=== PATIENT | male | born 1935 | race Caucasian/White ===

== ENCOUNTER 2020-06-12 13:30 | Outpatient (CLI) | payer MEDICARE, BC, SELFPAY ==
--- NOTE | ~2020-06-12 | CT_ITS ---
EXAMINATION: CT chest wo con DATE: 06/12/2020 14:10 INDICATION: Lung nodule TECHNIQUE: Computed tomography (CT) of the chest was performed without intravenous contrast. The dose -length product (DLP) was 219.08 mGy-cm. Automated exposure control and iterative reconstruction tech nique were employed. COMPARISON: None FINDINGS: Small nodules of the right upper lobe measure up to 4 mm on image 45. There is a 4 mm nodul e of the left upper lobe on image 50. There is a 4 mm left lower lobe nodule on image 79. No patholog ically enlarged thoracic lymph nodes are identified. The heart size is normal. Calcified coronary art manolo atherosclerosis is noted. A 1.9 cm area of fluid attenuation in the subcutaneous fat of the upper back likely represents a sebaceous cyst. There is mild thoracic spondylosis. Calcified pulmonary n odules are consistent with old granulomatous disease. There is dependent atelectasis. No focal airspa ce opacities are identified. IMPRESSION: 1. Scattered pulmonary nodules measuring up to 4 mm, likely old granulomatous disease in the absence of known malignancy. If the patient has no risk factors for malignancy, no further follow up is requi red. If there are risk factors for malignancy (i.e., history of smoking, asbestos or radiation expos ure), consider followup CT in 12 months. Reviewed, dictated and finalized at location A. IMPRESSION: 1. Scattered pulmonary nodules measuring up to 4 mm, likely old granulomatous d isease in the absence of known malignancy. If the patient has no risk factors f or malignancy, no further follow up is required. If there are risk factors for malignancy (i.e., history of smoking, asbestos or radiation exposure), conside r followup CT in 12 months.
== END 2020-06-12 13:31 | disposition home or self-care (01) ==
PROVIDERS: PCP Family Medicine; Visit Provider Internal Medicine Critical Care Medicine
DX: R91.8 Other nonspecific abnormal finding of lung field (principal)
CPT/HCPCS: 71250

== ENCOUNTER 2020-07-17 08:26 | Outpatient (CLI) | payer MEDICARE, BC, SELFPAY ==
--- NOTE | 2020-08-04 20:47 | SLEEP_ITS ---
HOME SLEEP TEST DATE OF STUDY: 07/17/2020 ORDERING PHYSICIAN: Yanira Quijano M.D. REASON FOR THE STUDY: MARK. HISTORY: This patient is an 84-year-old man, 5 feet 8 inches tall, weighing 176 pounds with a body mass index of 26.7. He has a prior history of obstructive sleep apnea syndrome, was never on CPAP, he does gasp at night periodically. His sleep-related complaints include waking at least 3 times at night to use the bathroom, breathing through his mouth at night and a snorting noise when he wakes up throughout the night. This happens if he is lying supine. He rarely has trouble sleeping with a cold, rarely gasps for breath at night. He frequently has breathing problems at night witnessed by others. He occasionally sweats excessively at night. He never notices his heart pounding or beating irregularly at night. He rarely falls asleep during the day. He never falls asleep involuntarily or while driving. He does not have loss of muscle tone with strong emotion or daytime difficulties due to excessive sleepiness. He does not feel paralyzed on waking or falling asleep and does not have vivid dreamlike scenes upon awakening or falling asleep. He is never afraid to go to sleep and denies nightmares. He rarely remembers his dreams, occasionally has racing thoughts. He rarely feels sad or depressed. He occasionally feels anxiety. He never has muscular tension. He rarely notices parts of his body jerking. He does not kick at night, does not have crawly achy feelings in his legs at night, does not have leg pain at night and does not have morning jaw pain. Bedtime is 10:30 p.m. and falling asleep may take anywhere from 30 minutes up to 2 hours. He typically awakens 3 times at night to go to the bathroom. He wakes in the morning at 6:30 a.m. He estimates 6-7 hours of sleep at night. He does have daytime sleepiness on occasion and occasionally has memory or concentration problems. MEDICAL COMORBIDITIES: 1. Hypertension. 2. Impaired fasting glucose. 3. Multiple pulmonary nodules. 4. Prostate cancer. 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 MEDICATIONS: 1. Lisinopril 5 mg daily. 2. Silodosin 4 mg daily. HABITS: Previously smoked tobacco, none currently. He has 7 alcoholic beverages a week. Does not use recreational substances. He does not indicate if he drinks caffeine or not. DESCRIPTION OF THE STUDY: On the [place] Sleepiness Scale, his score is 5. This was conducted as an unattended type 3 portable home sleep test using 4-channel monitoring with respiratory effort channel, snoring channel, oxygen saturation channel, and heart rate channel. This study was scored using [facility] guidelines. The apnea-hypopnea index is 4. Respiratory disturbance index is 6.4, which is elevated. Oxygen desaturation index is 3. He had 6 apneas. Of the 6 apneas, 4 apneas or 67% were obstructive, 2 apneas or 33% were central, he had 18 hypopneas and 95 snoring events. He desaturated 25 times, but did not desaturate below 88%. Lowest saturation was 89%. Mean saturation was 96%. Pulse ranged from 50-100. IMPRESSION: This home sleep test does not show evidence of significant sleep-disordered breathing. He had mild increase in his respiratory disturbance index at 6.4, but this does not qualify for diagnosis of obstructive sleep apnea syndrome. He likely has upper airway resistance syndrome, but this is not a criteria to initiate CPAP therapy. We would recommend evaluation for nasal and upper airway anatomy and other symptoms such as rhinitis that could be treated medically to improve and reduce airway resistance at night. The patient can consider sleeping on his side and possibly elevating the head of the bed. He desaturates to 89%, which is very minimal
--- NOTE | 2020-08-30 12:59 | PM.EVENT ---
Event Note Event Note Event Note: Addendum to Vini Aguirre's Home Sleep Test 07/17/2020. The evaluation time was 6 hours 22 minutes. This was not included on the final report.
== END 2020-07-17 08:27 | disposition home or self-care (01) ==
LOC: ANHCSM 08:27
PROVIDERS: PCP Family Medicine; Visit Provider Internal Medicine Critical Care Medicine
DX: G47.33 Obstructive sleep apnea (adult) (pediatric) (principal)
CPT/HCPCS: 95806

== ENCOUNTER → 2021-03-22 12:57 | Outpatient (CLI) | payer MEDICARE, BC, SELFPAY ==
--- NOTE | ~2021-03-22 | CT_ITS ---
EXAMINATION: CT brain wo con DATE: 03/22/2021 13:10 INDICATION: Syncope. Collapse. TECHNIQUE: Computed tomography (CT) of the head was performed without intravenous contrast. The dose- length product was 599.57 mGy-cm. The mA was adjusted according to patient size. Iterative reconstruc tion technique was employed. COMPARISON: CT dated 07/30/2018 FINDINGS: Mild atrophy. There are scattered mild periventricular and subcortical white matter changes , most likely related to small vessel ischemic disease (microangiopathy). No ventriculomegaly or midl ine shift. Basilar cisterns are patent. Paranasal sinuses and mastoids are pneumatized. No depressed skull fractures. Midline sagittal images are unremarkable. IMPRESSION: 1. No acute intracranial abnormality. 2: Chronic age-related findings. Reviewed, dictated and finalized at location A.
== END ==
PROVIDERS: PCP Family Medicine; Visit Provider Physician Assistant
DX: R55 Syncope and collapse (principal)
CPT/HCPCS: 70450

== ENCOUNTER 2023-09-13 14:11 | Emergency (ER) | payer MEDICARE, BC, SELFPAY ==
--- NOTE | ~2023-09-13 | CT_ITS ---
EXAMINATION: CT brain wo con DATE: 09/13/2023 14:36 INDICATION: fall . TECHNIQUE: Computed tomography (CT) of the head was performed without intravenous contrast. The mA wa s adjusted according to patient size. Iterative reconstruction technique was employed. The dose-lengt h product was 681.00 mGy-cm. COMPARISON: 03/22/2020. FINDINGS: No acute intracranial hemorrhage or extra-axial fluid collection. No hydrocephalus, mass, or herniation. No acute ischemic infarct. Unremarkable dural venous sinus attenuation. No acute osseous abnormality. The aerated spaces are clear. Moderate atrophy and chronic white matter change. Atherosclerotic intracranial calcification. Bilater al lens replacements. IMPRESSION: No acute intracranial process. Reviewed, dictated and finalized at location K. 6 DEALER
--- NOTE | ~2023-09-13 | CT_ITS ---
EXAMINATION: CT facial & cervical spine wo DATE: 09/13/2023 14:36 INDICATION: fall TECHNIQUE: Computed tomography (CT) of the maxillofacial region and cervical spine was performed with out intravenous contrast. Automated exposure control and iterative reconstruction technique were empl oyed. The dose-length product was 448.37 mGy-cm. COMPARISON: CT C-spine 10/06/2007 FINDINGS: CERVICAL: Vertebral Body Alignment: Intact. Reversed lordosis centered at C5. Craniocervical and atlantoaxial alignment: Moderate degenerative change. Alignment intact. Osseous structures/fracture: No evidence of a lytic or blastic process in the visualized spine. No e vidence of acute fracture. Cervical soft tissues: The paraspinal soft tissues planes are maintained. Degenerative changes: Degenerative changes, without severe neural foraminal or central canal narrowin g . FACE: Soft Tissues: Soft tissue swelling over the forehead and nose. Facial bones: Mildly comminuted, mildly depressed nasal bone fractures. No lytic or blastic process. Eyes: The globes are intact. The soft tissue planes of the orbits are maintained. Paranasal Sinuses: The visualized aerated spaces are clear. Foreign Bodies: No radiopaque foreign bodies. Other Findings: None. IMPRESSION: No acute fracture or traumatic malalignment in the cervical spine. Mildly comminuted and mildly depre ssed nasal bone fractures. Reviewed, dictated and finalized at location K. PER IMPRESSION: No acute fracture or traumatic malalignment in the cervical spine. Mildly commi nuted and mildly depressed nasal bone fractures.
[2023-09-13 14:12] VITALS: BP 143/85; PULSE 75; RESP 16; TEMP 36.8; O2SAT 100
--- NOTE | 2023-09-13 14:31 | ED.FALL ---
HPI - Fall General Chief Complaint: Fall Stated Complaint: Fall, Lacerations of Face Time Seen by Provider: 09/13/23 14:29 Source: patient and family History of Present Illness HPI Narrative: patient was chasing leave bag on the concrete floor, tripped and landed face 1st, the loss of consciousness complaining of nasal bone and the front teeth pain. Patient does not remember the last time he had a tetanus shot, is not on anti-platelet or anticoagulant medication. Related Data Allergies Allergy/AdvReac Type Severity Reaction Status Date / Time No Known Allergies Allergy Verified 09/13/23 14:16 [facility] Past Medical History Medical History HTN (hypertension), benign IFG (impaired fasting glucose) Multiple pulmonary nodules determined by computed tomography of lung Prostate cancer Surgical History Surgical History Status post left inguinal hernia repair Status post tonsillectomy Family History Family History Father Pancreatic cancer Father Family history of pancreatic cancer Social History Social History Social History: Smoking packs per day: 1 Smoking cigarettes per day: 20.0 Years smoked: 2 Smoking pack-years: 2.00 Smoking status: Former smoker Second hand tobacco smoke exposure: No Alcohol intake: current Drinks per week: 7 Substance use: never Substance use type: does not use Living arrangements: with family Occupation/Education: retired Gender identity (if verbalized by the patient): Male Sexual Orientation (if Verbalized by the Patient): Straight or Heterosexual Exam Narrative: General appearance: Well-developed, well-nourished , anxious Skin: Normal color, 2 cm vertical laceration mid upper lip Head: Normocephalic, nontraumatic Eyes: Clear conjunctiva ENT: Oropharynx normal, ears normal, nose normal, upper front incisor pushed slightly backward , does not move Neck: Supple, nontender Chest and respiratory: Airway patent, no respiratory distress, no accessory muscle use Heart: Regular rate/rhythm Abdomen: Soft, nontender, no organomegaly, quiet bowel sounds Vascular: Normal peripheral pulses, normal capillary refill. Musculoskeletal: Normal range of motion, nontender back Neurologic: Alert and oriented ?3, POULTRY CULLER is normal as tested, no gross motor deficit Course Vital Signs Vital signs: Vital Signs Temperature 36.8 C 09/13/23 14:12 Pulse Rate 75 09/13/23 14:12 Respiratory Rate 16 09/13/23 14:12 Blood Pressure 143/85 H 09/13/23 14:12 Pulse Oximetry 100 09/13/23 14:12 Temperature 36.8 C 09/13/23 14:12 Pulse Rate 78 09/13/23 17:29 Respiratory Rate 16 09/13/23 17:29 Blood Pressure 142/86 H 09/13/23 17:29 Pulse Oximetry 98 09/13/23 17:29 Procedures Laceration Laceration 1: Date: 09/13/23 Time: 17:48 Site: lip Size (cm): 2 Description: linear, clean and involves tiny border Depth: simple, single layer Local Anesthetic: lidocaine 1% and with epi Amount of anesthesia used (mL): 3 Pre-repair: wound explored ====== Skin Level ====== Skin layer closed with: other (ethiolon) Size (cm): 6-0 Number of sutures: 5 Technique: simple, interrupted ====== Subcutaneous Layer ====== ====== Muscle Layer ====== ====== Tendon Layer ====== MDM - Fall MDM Narrative Medical decision making narrative: chino
[2023-09-13] MEDS: TETANUS,DIPHTHERIA,AC PERTUSSIS ADULT (0.5 ML) BOOSTRIX IM (15:34)
[2023-09-13] MEDS: CEPHALEXIN 500 MG CAPSULE PO (17:28)
[2023-09-13 17:29] VITALS: BP 142/86; PULSE 78; RESP 16; O2SAT 98
== END 2023-09-13 17:30 | disposition home or self-care (01) ==
PROVIDERS: Emergency Provider Emergency Medicine; PCP Family Medicine
DX: S01.511A Laceration without foreign body of lip, initial encounter (principal); S02.2XXA Fracture of nasal bones, initial encounter for closed fracture; S03.2XXA Dislocation of tooth, initial encounter; Z23 Encounter for immunization; I10 Essential (primary) hypertension; Z85.46 Personal history of malignant neoplasm of prostate; Z87.891 Personal history of nicotine dependence; W01.0XXA Fall on same level from slipping, tripping and stumbling without subsequent striking against object, initial encounter
CPT/HCPCS: 12011; 70450; 70486; 72125; 90471; 90715; 99284; A9270

== ENCOUNTER 2023-09-21 20:29 | Inpatient (IN) | payer MEDICARE, BC, SELFPAY ==
--- NOTE | ~2023-09-21 | MR_ITS ---
MRI of the brain Clinical History: Dysarthria, unsteadiness Technique: Axial and sagittal T1-weighted images were acquired. These were followed by axial T2-weigh kayla, diffusion weighted, gradient, and FLAIR images. Following intravenous administration of 16 cc Mu ltiHance gadolinium, T1-weighted fat-sat imaging was performed in the axial and coronal planes. Findings: Questionable acute to subacute punctate acute infarct in the left trish. There is moderate t o advanced chronic microvascular ischemic change in the white matter and trish otherwise. No intracran ial hemorrhage evident. Ventricles and subarachnoid spaces are dilated. Orbits are unremarkable. Paranasal sinuses and mastoi d air cells are clear. Major intracranial flow voids appear intact. Sagittal midline structures are intact. No abnormal postcontrast enhancement identified. IMPRESSION: Questionable punctate acute infarct in the left trish. Moderate to advanced chronic microvascular ischemic change, and moderate generalized atrophy. Reviewed, dictated and finalized at [facility]. RDS ANALYST IMPRESSION: Questionable punctate acute infarct in the left trish. Moderate to advanced chronic microvascular ischemic change, and moderate genera lized atrophy.
--- NOTE | ~2023-09-21 | CT_ITS ---
EXAMINATION: CT brain wo con DATE: 09/21/2023 21:10 INDICATION: syncope . TECHNIQUE: Computed tomography (CT) of the head was performed without intravenous contrast. The mA wa s adjusted according to patient size. Iterative reconstruction technique was employed. The dose-lengt h product was 681.00 mGy-cm. COMPARISON: 09/13/2023. FINDINGS: No acute intracranial hemorrhage or extra-axial fluid collection. No hydrocephalus, mass, or herniation. No acute ischemic infarct. Unremarkable dural venous sinus attenuation. No acute osseous abnormality. Mild ethmoid mucosal thickening, the remaining aerated spaces are clear. Moderate atrophy and chronic white matter change. Atherosclerotic intracranial calcification. Bilater al lens replacements. IMPRESSION: No acute intracranial process. Reviewed, dictated and finalized at location K. C INSTRUCTOR
--- NOTE | ~2023-09-21 | XR_ITS ---
EXAMINATION: XR chest 1V portable Exam Date/Time: 09/21/2023 22:04 CLOUD SYSTEMS ARCHITECT HISTORY: SYNCOPE, WEAKNESS Comparison: 04/03/2011; CT face C-spine 09/13/2023; CT chest 06/12/2020. RESULT: Lines, tubes, and devices: None. Lungs and pleura: Streaky bibasilar scar/atelectasis, otherwise clear. Cardiomediastinal silhouette: Stable. Other: No acute osseous or upper abdominal finding. IMPRESSION: No acute cardiopulmonary process. Reviewed, dictated and finalized at location K. D SYSTEMS ARCHITECT
--- NOTE | ~2023-09-21 | US_ITS ---
EXAMINATION: US carotid duplex BI DATE: 09/24/2023 13:08 INDICATION: Stroke. Dysarthria. TECHNIQUE: Grayscale, color Doppler, and pulsed Doppler images of the cervical carotid arteries were obtained. The degree of vessel stenosis is placed in one of the following categories: normal, <50%, 5 0-69%, >=70% but less than near-occlusion, near-occlusion, or total occlusion. Note that percent sten osis relative to normal distal artery lumen diameter is indirectly measured from velocity measurement s as described by Marin, et al. Radiology 2003; [id number]. COMPARISON: None. FINDINGS: RIGHT: The right common carotid artery (CCA) peak systolic velocity (PSV) is 105 cm/s. The right internal ca rotid artery (ICA) PSV is 60 cm/s. The right ICA end-diastolic velocity (EDV) is 13 cm/s. The right I CA/CCA PSV ratio is 0.6. Grayscale and color Doppler images yield an estimate of <50% diameter reduct ion from plaque in the ICA. There is antegrade flow in the right vertebral artery. LEFT: The left CCA PSV is 134 cm/s. The left ICA PSV is 52 cm/s. The left ICA EDV is 11 cm/s. The left ICA/ CCA PSV ratio is 0.4. Grayscale and color Doppler images yield an estimate of <50% diameter reduction from plaque in the ICA. There is antegrade flow in the left vertebral artery. IMPRESSION: 1. <50% stenosis in the right internal carotid artery. 2. <50% stenosis in the left internal carotid artery. Reviewed, dictated and finalized at location A. AL SERVICE DIRECTOR
[2023-09-21 20:26] VITALS: BP 124/75; PULSE 67; RESP 16; TEMP 36.5; O2SAT 100
--- NOTE | 2023-09-21 20:32 | ECG_ITS ---
Measurements Intervals [place] Rate: 74 P: 56 AL: 245 QRS: 29 QRSD: 88 T: 52 QT: 399 QTc: 443 Interpretive Statements SINUS RHYTHM WITH FIRST DEGREE AV BLOCK NONSPECIFIC T-WAVE ABNORMALITY- ANT/INF LEADS BASELINE ARTIFACT- I, II, III, AVR, AVL, AVF, V1-V3 BORDERLINE ECG NO PREVIOUS ECG AVAILABLE FOR COMPARISON Electronically Signed On 09-22-2023 8:08:49 CARE ASSOCIATE by Omid Wick D.O.
[2023-09-21 20:53] LABS: Basophils Percent Auto 0.3 % (0.2-1.2); Eosinophils Percent Auto 0.3 % (0-4.4); Hematocrit 42.5 % (42.0-52.0); Hemoglobin 13.9 g/dL (14.0-18.0); Immature Granulocyte Absolute 0.03 K/mm3 (0.00-0.031); Immature Granulocyte Percent A 0.4 % (0-0.5); Lymphocytes Absolute Auto 1.03 K/mm3 (0.9-3.2); Lymphocytes Percent Auto 13.2 % (18.3-44.2); Mean Corpuscular HGB Conc 32.7 g/dl (32-36); Mean Corpuscular Volume 103.9 fl (80-100); Mean Platelet Volume 9.1 fl (7.4-10.4); Monocytes Absolute Auto 1.1 K/mm3 (0.1-0.6); Monocytes Percent Auto 13.8 % (2.6-8.5); Neutrophils Absolute Auto 5.6 K/mm3 (1.3-6.7); Platelet Count Result 201 k/mm3 (150-375); Red Blood Count 4.09 M/mm3 (4.6-6.20); Red Cell Distribution Width 13.3 % (11.5-14.5); White Blood Count 7.8 K/mm3 (4.5-10.0)
--- NOTE | 2023-09-21 21:00 | ED.GENADULT ---
HPI - General Adult General Chief complaint: Syncope Stated complaint: syncopal episode Time Seen by Provider: 09/21/23 20:36 History of Present Illness HPI narrative: patient is a 88-year-old gentleman who presents to the emergency department with chief complaint of syncopal episode. Patient reports that approximately 1 week ago he had an episode of syncope of which he fell struck his face and had a nasal bone fracture and a lip laceration. The patient states that since then he has felt weak and has been somewhat shaky the patient states that he was sitting in his chair and became unresponsive in the family noticed that he had snoring respirations EMS was called and reported that his blood pressure was somewhat low at the time the patient had no generalized shaking denies loss of bowel or bladder control and had no signs of seizure. The patient states that he did have 2 episodes of diarrhea today the patient states that he just feels generally weak the patient denies chest pain denies shortness of breath denies abdominal pain Related Data Allergies Allergy/AdvReac Type Severity Reaction Status Date / Time No Known Allergies Allergy Verified 09/13/23 14:16 Review of Systems Review of Systems: A 10 system review of systems was completed on the patient and is negative except for what is stated in the HPI. Nursing and ancillary documentation was reviewed. [facility] Past Medical History Medical History HTN (hypertension), benign IFG (impaired fasting glucose) Multiple pulmonary nodules determined by computed tomography of lung Prostate cancer Surgical History Surgical History Status post left inguinal hernia repair Status post tonsillectomy Family History Family History Father Pancreatic cancer Father Family history of pancreatic cancer Social History Social History Social History: Smoking packs per day: 1 Smoking cigarettes per day: 20.0 Years smoked: 2 Smoking pack-years: 2.00 Smoking status: Former smoker Second hand tobacco smoke exposure: No Alcohol intake: current Drinks per week: 7 Substance use: never Substance use type: does not use Living arrangements: with family Occupation/Education: retired Gender identity (if verbalized by the patient): Male Sexual Orientation (if Verbalized by the Patient): Straight or Heterosexual Exam Narrative: GENERAL: Well-appearing, well-nourished, and in no acute distress. HEAD: Normocephalic, atraumatic. EYES: PERRLA and EOMI. ENT: Nares clear, no rhinorrhea or epistaxis. Mucous membranes moist. NECK: Supple. CHEST: Clear to auscultation. No respiratory distress. HEART: Regular rate and rhythm. No murmur heard. Normal peripheral pulses. ABDOMEN: Soft, nontender, nondistended, normal active bowel sounds. EXTREMITIES: Normal range of motion. No edema. SKIN: Warm, dry, no rash. NEURO: No focal deficits. Alert and oriented x3. PSYCH: Normal mood and affect. Course Vital Signs Vital signs: Vital Signs Temperature 36.5 C 09/21/23 20:26 Pulse Rate 67 09/21/23 20:26 Respiratory Rate 16 09/21/23 20:26 Blood Pressure 124/75 09/21/23 20:26 Pulse Oximetry 100 09/21/23 20:26 Oxygen Delivery Room Air 09/21/23 20:26 Temperature 36.6 C 09/21/23 21:55 Pulse Rate 77 09/21/23 21:55 Respiratory Rate 20 09/21/23 21:55 Blood Pressure 145/80 H 09/21/23 21:55 Pulse Oximetry 99 09/21/23 21:55 Oxygen Delivery Room Air 09/21/23 20:26 Medical Decision Making MDM Narrative Medical decision making narrative: differential diagnosis includes cardiogenic syncope, dehydration, electrolyte abnormality, pneumonia, CVA, laboratory studies were obtai
[2023-09-21] MEDS: SODIUM CHLORIDE 0.9% IV 1,000 ML 999 ML IV CONT (21:53)
[2023-09-21 21:55] VITALS: BP 145/80; PULSE 77; RESP 20; TEMP 36.6; O2SAT 99
[2023-09-21 22:08] LABS: Partial Thromboplastin Time 28.8 SECONDS (22.3-36.8)
[2023-09-21 22:09] LABS: Lactic Acid Reflex 1.3 mmol/L (0.7-2.0)
[2023-09-21 22:17] LABS: Alanine Aminotransferase 18 U/L (6-50); Albumin Level 3.7 g/dL (3.5-5.1); Alkaline Phosphatase 47 U/L (38-126); Anion Gap 12 mmol/L (8-16); Aspartate Amino Transferase 39 U/L (17-59); Bilirubin,Total 0.6 mg/dL (0.2-1.3); Blood Urea Nitrogen 19 mg/dL (9-20); Calcium 8.3 mg/dL (8.4-10.2); Carbon Dioxide 18 mmol/L (22-30); Chloride 102 mmol/L (98-107); Estimated CRCL calculation 49 ml/min; Estimated Glomerular Filt Rate > 60; Glucose 110 mg/dL (65-110); Magnesium 2.1 mg/dL (1.6-2.3); Potassium 4.9 mmol/L (3.4-5.0); Sodium 132 mmol/L (137-145)
[2023-09-21 22:24] LABS: Troponin I < 0.012 ng/mL (0.000-0.034)
[2023-09-21 22:37] LABS: Influenza A QL RT-PCR Negative (Negative); Influenza B QL RT-PCR Negative (Negative); SARS-CoV-2 RNA PCR Negative (Negative)
[2023-09-22] VITALS (11 sets, daily range): BP systolic 106–153; BP diastolic 62–96; PULSE 70–92; RESP 15–20; TEMP 36.5–37.1; O2SAT 96–100; BMI 26.8
[2023-09-22 00:21] LABS: Appearance Urine Clear (Clear); Bacteria Urine None Seen /hpf; Bilirubin Urine Negative (Negative); Blood Urine Negative (Negative); Color Urine Yellow (Yellow); Glucose Urine UA Negative (Negative); Ketones Urine 2+ mg/dL (Negative); Leukocyte Esterase Ur Negative LEU/UL (Negative); Nitrate Urine Negative (Negative); Protein Urine Trace mg/dL (Negative); RBC Urine 0-2 /hpf (0-2); Specific Grav Ur 1.025 (1.001-1.035); Squamous Epithelial Cell Urine None seen /hpf (Few); Urobilinogen Urine 0.2 mg/dL (<2.0); WBC Urine 0-5 /hpf; pH Urine 5.5 (5.0-9.0)
[2023-09-22 00:46] LABS: Add Urine Microscopic? YES
--- NOTE | 2023-09-22 01:30 | ADMGEN ---
This patient, Vini Aguirre, was admitted to Medical Room 344-01. Patient/family oriented to hospital policies and general routines including ID bracelet, bed and alarms, visiting hours, pain management, procedures, bathroom and other care routines, personal items, smoking policy, room service/diet, and visiting hours. Information on how to activate the Rapid Response Team has been discussed. Patient/Family are encouraged to report perceived risks to care and to ask questions if they do not understand what they are told or what they should do.
[2023-09-22] MEDS: SODIUM CHLORIDE 0.9% IV 1,000 ML 125 ML IV CONT ×2 (02:03→10:28)
--- NOTE | 2023-09-22 04:03 | PM.IMHP ---
H&P: HPI History of Present Illness Date/Time: 09/22/23 04:03 Chief Complaint: Weak, diarrhea Narrative: 88-year-old male with past medical history of BPH and hypertension who presented to the ER due to feeling weakness and having diarrhea. Patient reports that problem started 1 week ago when was outside working in the yard. He had been raking leaves about 2 hours and was standing in the driveway. When he went to put the [employer] waste into a bad she passed out. He had no prodromal symptoms and landed on the concrete face 1st. He came into the ER for evaluation and had imaging which demonstrated if nasal fracture. He was discharged home on Keflex for preventative of infection. He reports ever since he had the syncopal event he has been feeling weaker and fatigued. He has also had some decreased appetite. He suspects that he may not have been drinking enough fluid on the day that he was working in the [employer]. He did not receive any IV fluids during his 1st ER visit in did not have labs performed. He reports that about 3 days ago he began having watery brown diarrhea. He was having 2-3 episodes a day until today at which time he had an incontinent bowel movement and he has had 5 her more diarrheal stools. As a result he has not had any desire to eat. He denies any abdominal pain. He denies any nausea headache or vision changes. He denies any dizziness with standing. Orthostatic vital signs obtained after patient arrived to the floor demonstrated approximately 15 be increase in heart rate when going from supine to sitting position. No orthostatic change in blood pressure. Review of Systems Review of Systems: 12 systems were reviewed with pertinent positives and negatives per HPI. Except as documented in the HPI, all other systems were reviewed and are negative. He reports nasal congestion. He has not had any epistaxis since injury. [facility] Past Medical History Medical History HTN (hypertension), benign IFG (impaired fasting glucose) Multiple pulmonary nodules determined by computed tomography of lung Prostate cancer Surgical History Surgical History Status post left inguinal hernia repair Status post tonsillectomy Family History Family History (Updated 09/22/23 @ 04:10 by Kelley Quispe DO) Father Pancreatic cancer Social History Social History (Updated 09/22/23 @ 04:12 by Kelley Quispe DO) Social History: He and his have been since 1960. They live in their own home. 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 He denies any significant tobacco use or drug use. He does not have advanced directives in place. But he does not know if he would want to be resuscitated or be placed on a ventilator. He wants to talk about these options with his family before making a decision. He would want his to be his surrogate decision maker. Smoking packs per day: 1 Smoking cigarettes per day: 20.0 Years smoked: 2 Smoking pack-years: 2.00 Smoking status: Former smoker Second hand tobacco smoke exposure: No Alcohol intake: current Drinks per week: 7 Substance use: never Substance use type: does not use Lack of Transportation: No Lack of Food: Never True Current Housing: I Have Housing Concerned About Future Housing: No Difficulty Paying Gas/Electric Bills: No Difficulty Paying for Meds: No Currently Unemployed: No Education: Bachelor's Degree Difficulty w/ Childcare or Family Care: No Living arrangements: with family Occupation/Education: retired Gender identity (if verbalized by the patient): Male Sexual Orientation (if Verbalized by the Patient): Straight or Heterosexual Spiritual care concerns: No Meds Home Medications and Allergies Home Medications Medication Instructions Recorded Confirmed Type silodosin 4 mg cap
[2023-09-22 06:02] LABS: Mean Corpuscular HGB Conc 32.5 g/dl (32-36); Mean Corpuscular Hemoglobin 34.1 pg (26-34); Mean Platelet Volume 9.1 fl (7.4-10.4); Platelet Count Result 186 k/mm3 (150-375); Red Blood Count 3.81 M/mm3 (4.6-6.20); Red Cell Distribution Width 13.2 % (11.5-14.5); White Blood Count 4.6 K/mm3 (4.5-10.0)
[2023-09-22 06:13] LABS: Anion Gap 7 mmol/L (8-16); Blood Urea Nitrogen 16 mg/dL (9-20); Calcium 7.8 mg/dL (8.4-10.2); Carbon Dioxide 21 mmol/L (22-30); Chloride 106 mmol/L (98-107); Estimated CRCL calculation 55 ml/min; Estimated Glomerular Filt Rate > 60; Glucose 97 mg/dL (65-110); Magnesium 1.9 mg/dL (1.6-2.3); Potassium 4.3 mmol/L (3.4-5.0); Sodium 134 mmol/L (137-145)
[2023-09-22 06:24] LABS: Troponin I < 0.012 ng/mL (0.000-0.034)
[2023-09-22] MEDS: lisinopriL 5 MG TABLET PO (10:27)
[2023-09-22 13:54] LABS: Toxigenic C. Diff NEGATIVE (NEGATIVE)
--- NOTE | 2023-09-22 14:06 | PM.IMPN ---
Progress Note: A&P Assessment and Plan (1) Dehydration: Code(s): E86.0 - Dehydration Status: Acute (2) Diarrhea: Qualifiers: Diarrhea type: presumed infectious Qualified Code(s): R19.7 - Diarrhea, unspecified Code(s): R19.7 - Diarrhea, unspecified Status: Acute (3) Syncope and collapse: Code(s): R55 - Syncope and collapse Status: Acute (4) HTN (hypertension), benign: Code(s): I10 - Essential (primary) hypertension Status: Acute (5) IFG (impaired fasting glucose): Code(s): R73.01 - Impaired fasting glucose Status: Acute (6) Prostate cancer: Code(s): C61 - Malignant neoplasm of prostate Status: Acute (7) Multiple pulmonary nodules determined by computed tomography of lung: Code(s): R91.8 - Other nonspecific abnormal finding of lung field Status: Acute (8) History of sleep apnea: Code(s): Z86.69 - Personal history of other diseases of the nervous system and sense organs Status: Acute Plan 1. Dehydration related to ongoing etoh use, diarrhea, poor PO intake at home urine labs, serum labs show dehydration + orthostatics by HR in the ER. BP orthostatics negative Has received 1.5L IVF so far, will finish the last [address] on d5 1/2 ns at 75 ml/hr Ct oral intake until ready for dc PT/OT and f/u recs 2. 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 Ct to encourage PO intake. Not a candidate for marinol yet 3. EtOh use In a mild withdrawal now based on physical exam signs prn ativan 4. Low electrolytes related to diarrhea CaGluconate being given 5. Nasal fracture From CT face 09/13 FACE: Soft Tissues:? Soft tissue swelling over the forehead and nose. Facial bones:? Mildly comminuted, mildly depressed nasal bone fractures. No lytic or blastic process. Ctm. Pt is showing some mild swelling BL under both eyes in the BL maxillary sinuses 6. BPH silodosin not available tamsulosin/finasteride started 7. Diarrhea c diff neg F/u rotavirus, stool occult blood, giardia, stool wbc/cx 8. Tumor marker screening. Pt has not had PSA for a while. Complaining of urinary retention f/u psa f/u tumor markers which can increase pt's risk of dehydration afp/cea/ca 19-9, ca 125 Time Spent With Patient Time: 45 min Subjective Date/time seen: 09/22/23 14:06 Interval history: reports whole body shaking, difficulty walking, still feeling dehydrated, still diarrhea Reports he drinks only 1 beer a day. says he does not drink much water. Declined echo evaluation of prior syncopal episode. Exam Narrative: Weight 80 kg BMI 26.8 Const: Other: No acute distress, well-developed well-nourished, appears stated age HENMT: Other: Abrasion to the upper lip, swelling to the nasal bridge, no oral pharyngeal erythema, no active bleeding, pupils are equal and reactive, extraocular movements Eyes: Other: Pupils are equal and reactive, extraocular movements intact, mild cataracts noted Neck: Other: Supple, nontender, no JVD Resp: Other: Clear to auscultation bilaterally, no increased work of breathing Cardio: Other: Regular rate, rhythm, 2+ bilateral radial pedal pulses, no murmur GI: Other: Soft, nontender, nondistended, positive bowel sounds Skin: Other: No jaundice, no pallor Neuro: Other: Alert oriented x4, speech is clear, no facial asymmetry, no localizing neurologic deficits noted on limited exam Extrem: Other: No clubbing, cyanosis or edema, 5/5 strength bilateral upper and lower extremities Has BL UE tremor and tongue wag. Also had some gait ataxia while walking with PT/OT. Psych: Other: Appropriate mood and affect, pleasant and cooperative Objective Data Vital Signs Vital Signs: Vital Signs - 24 hr 09/21/23 20:26 09/21/23 21:55 09/22/23
[2023-09-22] MEDS: CALCIUM GLUC 1,000 MG/NS 50 ML 1,000 MG/50 ML BAG 100 MG IVPB (14:20)
[2023-09-22] MEDS: FINASTERIDE 5 MG TABLET PO (14:20)
[2023-09-22] MEDS: TAMSULOSIN HCL 0.4 MG CAPSULE PO (14:20)
[2023-09-22] MEDS: DEXTROSE 5%/0.45% SOD CHL 1,000 ML 75 ML IV CONT (14:21)
[2023-09-22] MEDS: LORazepam INJ (*CRX) 2 MG/ML VIAL 0.5 MG IV PUSH (14:21)
[2023-09-22 22:55] LABS: IFOB Positive Control Positive; Immunochemical Fecal Occult Bl Negative (N)
[2023-09-23] VITALS (7 sets, daily range): BP systolic 116–156; BP diastolic 68–88; PULSE 58–116; RESP 18–20; TEMP 36.1–36.6; O2SAT 97–98
--- NOTE | 2023-09-23 | ECHO_ITS ---
Patient Info Name: Vini Aguirre Age: 88 years : 1935 Gender: Male Ht: 68 in Wt: 176 lbs BSA: 1.97 m2 HR: 76 bpm BP: 135 / 68 mmHg Heart Rhythm: Sinus Rhythm Technical Quality: Fair Exam Date: 09/23/2023 3:24 PM Exam Location: Echo Lab Patient Status: Inpatient Admit Date: 09/23/2023 Staff Ordering Physician: Nikko Luo APRN Motorboat Mechanic: Sobia Patel RDCS Attending Provider: Kelley Quispe DO Referring Physician: Valerio SALDIVAR; Exam Type: CA echo doppler w bubble study Study Info Indications - stroke Complete two-dimensional, color flow and Doppler transthoracic echocardiogram is performed with agitated saline. Contrast/Agitated Saline Contrast/Ag. Saline: Agitated Saline Amount: 20.00 ml Existing IV Access: Yes IV Access Condition: patent with no signs of infiltration Summary 1. Left ventricular chamber dimension is normal. 2. Left ventricular systolic function is normal, estimated at 60-65%. 3. The left ventricular diastolic function is grade II diastolic dysfunction. 4. E/e' 9 is minimally elevated. 5. There is mild aortic valve sclerosis. 6. There is trace aortic valve regurgitation. 7. There is trace mitral valve regurgitation. 8. There is mild tricuspid valve regurgitation. 9. No pulmonary hypertension, estimated pulmonary arterial systolic pressure is 27 mmHg. Left Ventricle E/e' 9 is minimally elevated. Left ventricular chamber dimension is normal. Left ventricular systolic function is normal, estimated at 60-65%. The left ventricular diastolic function is grade II diastolic dysfunction. Right Ventricle Right ventricular systolic function is normal and with normal TAPSE 2.0 cm. Right ventricular chamber dimension is normal. Left Atria Left atrial chamber dimension is normal. Right Atria Right atrial chamber dimension is normal. Atrial Septum Agitated saline injection with and without valsalva maneuver opacified right side cardiac chambers without obvious shunt to left side cardiac chambers. Intact interatrial septum visualized by 2D and agitated saline imaging. Aortic Valve The aortic valve is trileaflet. There is mild aortic valve sclerosis. There is no aortic valve stenosis. There is trace aortic valve regurgitation. Pulmonic Valve There is no pulmonic regurgitation. Mitral Valve There is no mitral valve stenosis. There is trace mitral valve regurgitation. Tricuspid Valve There is mild tricuspid valve regurgitation. No pulmonary hypertension, estimated pulmonary arterial systolic pressure is 27 mmHg. Pericardium/Pleural There is no pericardial effusion. Inferior Vena Cava Normal inferior vena cava with >50% collapse upon inspiration consistent with normal right atrial pressure, 5 mmHg. Aorta The aortic root size at the sinus of Valsalva is normal. Left Ventricular Outflow Tract Name Value Normal LVOT 2D LVOT Diameter 2.0 cm LVOT Doppler LVOT Peak Gradient 5 mmHg LVOT Mean Gradient 2 mmHg LVOT VTI 24 cm LVOT VTI/AV VTI Ratio 0.8 LVOT Stro
[2023-09-23 06:01] LABS: Basophils Percent Auto 0.2 % (0.2-1.2); Eosinophils Absolute Auto 0.1 K/mm3 (0-0.3); Eosinophils Percent Auto 1.4 % (0-4.4); Hematocrit 36.2 % (42.0-52.0); Hemoglobin 11.8 g/dL (14.0-18.0); Immature Granulocyte Absolute 0.01 K/mm3 (0.00-0.031); Immature Granulocyte Percent A 0.2 % (0-0.5); Lymphocytes Absolute Auto 1.39 K/mm3 (0.9-3.2); Lymphocytes Percent Auto 32.2 % (18.3-44.2); Mean Corpuscular HGB Conc 32.6 g/dl (32-36); Mean Corpuscular Hemoglobin 33.4 pg (26-34); Mean Corpuscular Volume 102.5 fl (80-100); Mean Platelet Volume 9.3 fl (7.4-10.4); Monocytes Absolute Auto 0.7 K/mm3 (0.1-0.6); Monocytes Percent Auto 15.3 % (2.6-8.5); Neutrophils Absolute Auto 2.2 K/mm3 (1.3-6.7); Neutrophils Percent Auto 50.7 % (45.5-73.1); Platelet Count Result 178 k/mm3 (150-375); Red Blood Count 3.53 M/mm3 (4.6-6.20); Red Cell Distribution Width 13.2 % (11.5-14.5); White Blood Count 4.3 K/mm3 (4.5-10.0)
[2023-09-23 06:28] LABS: Anion Gap 8 mmol/L (8-16); Blood Urea Nitrogen 11 mg/dL (9-20); Calcium 7.8 mg/dL (8.4-10.2); Carbon Dioxide 20 mmol/L (22-30); Chloride 105 mmol/L (98-107); Estimated CRCL calculation 62 ml/min; Estimated Glomerular Filt Rate > 60; Glucose 96 mg/dL (65-110); Magnesium 1.8 mg/dL (1.6-2.3); Potassium 3.8 mmol/L (3.4-5.0); Sodium 133 mmol/L (137-145)
[2023-09-23 07:48] LABS: Carcinoembryonic Antigen 1.3 ng/mL (0.0-3.0)
[2023-09-23] MEDS: TAMSULOSIN HCL 0.4 MG CAPSULE PO (09:25)
[2023-09-23] MEDS: FOLIC ACID 1 MG TABLET PO (09:25)
[2023-09-23] MEDS: FINASTERIDE 5 MG TABLET PO (09:25)
[2023-09-23] MEDS: THIAMINE HCL 100 MG TABLET PO (09:25)
[2023-09-23] MEDS: lisinopriL 5 MG TABLET PO (09:25)
[2023-09-23] MEDS: ENOXAPARIN 40 MG/0.4 ML SYRINGE SUB-Q (09:25)
[2023-09-23] MEDS: DEXTROSE 5%/LACTATED RINGERS 1,000 ML 75 ML IV CONT (09:31)
[2023-09-23 12:31] LABS: Folic Acid > 20.0 ng/mL (2.76->20)
[2023-09-23 14:13] LABS: Cholesterol 127 mg/dL (0-200); HDL Direct 39 mg/dL; Triglycerides 64 mg/dL (<150)
[2023-09-23 14:24] LABS: LDL Cholesterol Direct 68 mg/dL
--- NOTE | 2023-09-23 14:28 | PM.IMPN ---
Progress Note: A&P Assessment and Plan (1) Ischemic stroke diagnosed during current admission: Code(s): I63.9 - Cerebral infarction, unspecified Status: Acute Assessment and Plan: Patient not well coordinated, ataxia while walking, subtle dysarthria noted with conversation this morning, 2 syncopal episodes in the last week and a half, impulsivity. MRI obtained due to level of concern regarding this cluster of symptoms. Punctate acute to subacute left trish ischemic stroke visualized on MRI. Patient's reports speech pattern change about a week and a ago around the first syncopal episode. Symptoms previously thought to be result chronic alcohol use. Patient received aspirin atorvastatin ordered lipid ordered, echocardiogram with bubble study ordered, neurology consulted. Occupational therapy recommends outpatient home health therapy services 2-3 days per week. (2) Dehydration: Code(s): E86.0 - Dehydration Status: Resolved Assessment and Plan: Appears resolved, discontinue IV fluids (3) Diarrhea: Qualifiers: Diarrhea type: presumed infectious Qualified Code(s): R19.7 - Diarrhea, unspecified Code(s): R19.7 - Diarrhea, unspecified Status: Resolved Assessment and Plan: Appears resolved, stool cultures will in process (4) Syncope and collapse: Code(s): R55 - Syncope and collapse Status: Acute Assessment and Plan: To episodes of syncope in the last week and half. First time with fall and fractured nose 2nd was coming to the hospital for this visit and was while he was seated in a chair. (5) HTN (hypertension), benign: Code(s): I10 - Essential (primary) hypertension Status: Chronic Assessment and Plan: Blood pressure reviewed 1128 need for immediate intervention (6) Prostate cancer: Code(s): C61 - Malignant neoplasm of prostate Status: Acute Assessment and Plan: Tumor markers sent by previous provider still pending (7) Multiple pulmonary nodules determined by computed tomography of lung: Code(s): R91.8 - Other nonspecific abnormal finding of lung field Status: Acute Assessment and Plan: Tumor markers sent by previous provider still pending. Normal pulse oximetry no respiratory distress no cough (8) History of sleep apnea: Code(s): Z86.69 - Personal history of other diseases of the nervous system and sense organs Status: Acute Plan Remainder of stroke workup ordered after positive MRI. Expect patient to be able to discharge home with home health for PT/OT after evaluation completed. Time Spent With Patient Time with patient: Greater than 35 minutes Subjective Date/time seen: 09/23/23 11:28 Interval history: Patient very upset about still being in the hospital. He was insistent upon discharge home today. Upon evaluation patient had subtle dysarthria and it had been noted that he was still having balance problems and impulsivity. Previously this had been presumed to be due to chronic alcohol use. However, patient's stated that he is speech pattern changed about a week ago around the time of his 1st fall. Ordered MRI to rule out stroke. MRI shows punctate acute to subacute left trish ischemic stroke. Ordered aspirin lipid panel atorvastatin Neurology consult speech therapy consult and echo with bubble study. I discussed findings with patient and his . They understand they will remain in the hospital until tomorrow after Neurology consult echo and speech. Discontinued IV fluids. Review of Systems Review of Systems: All systems reviewed & are unremarkable except as noted in HPI and below Exam Narrative: Weight 80 kg BMI 26.8 Const: Other: No acute distress, well-developed well-nourished, appears stated age HENMT: Other: Abrasion to the upper lip, swelling to the nasal bridge, no oral pharyngeal erythema, no active bleeding, pupils are e
[2023-09-23] MEDS: ASPIRIN 325 MG TABLET PO (15:10)
--- NOTE | 2023-09-23 16:03 | PCSTNOTE ---
Please refer to the Bedside Swallow Evaluation in the EMR. Please note, silent aspiration cannot be ruled out at bedside.
[2023-09-23] MEDS: ATORVASTATIN 40 MG TABLET PO (20:13)
[2023-09-24 05:47] LABS: Basophils Percent Auto 0.4 % (0.2-1.2); Eosinophils Absolute Auto 0.1 K/mm3 (0-0.3); Eosinophils Percent Auto 1.8 % (0-4.4); Hematocrit 37.3 % (42.0-52.0); Hemoglobin 12.6 g/dL (14.0-18.0); Immature Granulocyte Absolute 0.01 K/mm3 (0.00-0.031); Immature Granulocyte Percent A 0.2 % (0-0.5); Lymphocytes Absolute Auto 1.54 K/mm3 (0.9-3.2); Mean Corpuscular HGB Conc 33.8 g/dl (32-36); Mean Corpuscular Hemoglobin 33.8 pg (26-34); Mean Platelet Volume 9.1 fl (7.4-10.4); Monocytes Absolute Auto 0.7 K/mm3 (0.1-0.6); Monocytes Percent Auto 14.8 % (2.6-8.5); Neutrophils Absolute Auto 2.2 K/mm3 (1.3-6.7); Neutrophils Percent Auto 48.8 % (45.5-73.1); Platelet Count Result 197 k/mm3 (150-375); Red Blood Count 3.73 M/mm3 (4.6-6.20); Red Cell Distribution Width 12.6 % (11.5-14.5); White Blood Count 4.5 K/mm3 (4.5-10.0)
[2023-09-24 06:00] VITALS: BP 135/81; PULSE 71; RESP 16; TEMP 36.8; O2SAT 94
[2023-09-24 06:01] LABS: Alanine Aminotransferase 16 U/L (6-50); Alkaline Phosphatase 47 U/L (38-126); Anion Gap 3 mmol/L (8-16); Aspartate Amino Transferase 28 U/L (17-59); Bilirubin,Total 0.7 mg/dL (0.2-1.3); Blood Urea Nitrogen 9 mg/dL (9-20); Carbon Dioxide 25 mmol/L (22-30); Chloride 105 mmol/L (98-107); Estimated CRCL calculation 62 ml/min; Estimated Glomerular Filt Rate > 60; Glucose 94 mg/dL (65-110); Magnesium 1.8 mg/dL (1.6-2.3); Potassium 3.7 mmol/L (3.4-5.0); Sodium 133 mmol/L (137-145)
[2023-09-24] MEDS: TAMSULOSIN HCL 0.4 MG CAPSULE PO (11:11)
[2023-09-24] MEDS: THIAMINE HCL 100 MG TABLET PO (11:11)
[2023-09-24] MEDS: lisinopriL 5 MG TABLET PO (11:11)
[2023-09-24] MEDS: ASPIRIN 81 MG ENTERIC TABLET PO (11:11)
[2023-09-24] MEDS: FINASTERIDE 5 MG TABLET PO (11:11)
[2023-09-24] MEDS: FOLIC ACID 1 MG TABLET PO (11:11)
[2023-09-24] MEDS: CLOPIDOGREL BISULFATE 75 MG TABLET PO (11:11)
--- NOTE | 2023-09-24 12:57 | WPDNEURCNPN ---
Assessment and Plan Assessment and plan (1) Syncope and collapse: Code(s): R55 - Syncope and collapse Status: Acute Plan One syncopal episode with nonfocal neurological examination, negative MRI of the brain carotid Doppler study at this stage is pending depending the results of that study further instruction we made in the meantime treatment will be continued as such Consult date: 09/24/23 HPI: Vini Aguirre is a 88 year old male admitted to the hospital through the emergency room for the complaints of syncopal episode when he fell and struck his face and had a nasal bone fracture and lip laceration since that time patient had been feeling weak he was witnessed to have snoring respiration by the family while sitting in the chair EMS were called to the scene his blood pressure was low but he was not having any generalized seizures or incontinence of bowel or bladder. He is not allergic to any medication. He does have ongoing history of multiple pulmonary nodules with history of the prostatic cancer, he smokes 20 cigarettes per day years smoked 2 but did present the former smoker currently alcohol intake or 7 drinks per week initial exam in the emergency room was nonfocal vital signs were normal normal CBC and BMP, since admission has had the MRI of the brain which revealed only questionable punctate acute infarct in left trish with moderate to advanced chronic microvascular ischemic changes and generalized atrophy of the brain Review of Systems Review of Systems: All systems reviewed & are unremarkable except as noted in HPI and below PMFSH Past Medical History Medical History HTN (hypertension), benign IFG (impaired fasting glucose) Multiple pulmonary nodules determined by computed tomography of lung Prostate cancer Surgical History Surgical History Status post left inguinal hernia repair Status post tonsillectomy Family History Family History (Updated 09/22/23 @ 04:10 by Kelley Quispe DO) Father Pancreatic cancer Social History Social History (Updated 09/22/23 @ 04:12 by Kelley Quispe DO) Social History: He and his have been since 1960. They live in their own home. 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 He denies any significant tobacco use or drug use. He does not have advanced directives in place. But he does not know if he would want to be resuscitated or be placed on a ventilator. He wants to talk about these options with his family before making a decision. He would want his to be his surrogate decision maker. Smoking packs per day: 1 Smoking cigarettes per day: 20.0 Years smoked: 2 Smoking pack-years: 2.00 Smoking status: Former smoker Second hand tobacco smoke exposure: No Alcohol intake: current Drinks per week: 7 Substance use: never Substance use type: does not use Lack of Transportation: No Lack of Food: Never True Current Housing: I Have Housing Concerned About Future Housing: No Difficulty Paying Gas/Electric Bills: No Difficulty Paying for Meds: No Currently Unemployed: No Education: Bachelor's Degree Difficulty w/ Childcare or Family Care: No Living arrangements: with family Occupation/Education: retired Gender identity (if verbalized by the patient): Male Sexual Orientation (if Verbalized by the Patient): Straight or Heterosexual Spiritual care concerns: No Meds Home Medications and Allergies Home Medications Medication Instructions Recorded Confirmed Type silodosin 4 mg capsule (Rapaflo) 4 mg PO DAILY #90 caps 03/07/22 09/22/23 Rx lisinopril 5 mg tablet 5 mg PO DAILY 09/22/23 09/22/23 History Allergies Allergy/AdvReac Type Severity Reaction Status Date / Time No Known Allergies Allergy Verified 09/13/23 14:16 Vital Signs Vital Signs - 24 hr
[2023-09-24 13:27] VITALS: O2SAT 97
[2023-09-24 14:00] VITALS: BP 157/76; PULSE 74; RESP 18; TEMP 36.7; O2SAT 99
--- NOTE | 2023-09-24 15:27 | PM.DS ---
DS: Admitting Diagnosis Discharge Date 09-24 Admitting Diagnosis Weakness DS: Discharge Diagnosis Discharge Diagnosis (1) Ischemic stroke diagnosed during current admission: Code(s): I63.9 - Cerebral infarction, unspecified Status: Acute Assessment and Plan: Patient not well coordinated, ataxia while walking, subtle dysarthria noted with conversation this morning, 2 syncopal episodes in the last week and a half, impulsivity. MRI obtained due to level of concern regarding this cluster of symptoms. Punctate acute to subacute left trish ischemic stroke visualized on MRI. Patient's reports speech pattern change about a week and a ago around the first syncopal episode. Symptoms previously thought to be result chronic alcohol use. Patient received aspirin atorvastatin ordered lipid ordered, echocardiogram with bubble study ordered, neurology consulted. Occupational therapy recommends outpatient home health therapy services 2-3 days per week. (2) Dehydration: Code(s): E86.0 - Dehydration Status: Resolved Assessment and Plan: Appears resolved, discontinue IV fluids (3) Diarrhea: Qualifiers: Diarrhea type: presumed infectious Qualified Code(s): R19.7 - Diarrhea, unspecified Code(s): R19.7 - Diarrhea, unspecified Status: Resolved Assessment and Plan: Appears resolved, stool cultures will in process (4) Syncope and collapse: Code(s): R55 - Syncope and collapse Status: Acute Assessment and Plan: To episodes of syncope in the last week and half. First time with fall and fractured nose 2nd was coming to the hospital for this visit and was while he was seated in a chair. (5) HTN (hypertension), benign: Code(s): I10 - Essential (primary) hypertension Status: Chronic Assessment and Plan: Blood pressure reviewed 1128 need for immediate intervention (6) Prostate cancer: Code(s): C61 - Malignant neoplasm of prostate Status: Acute Assessment and Plan: Tumor markers sent by previous provider still pending (7) Multiple pulmonary nodules determined by computed tomography of lung: Code(s): R91.8 - Other nonspecific abnormal finding of lung field Status: Acute Assessment and Plan: Tumor markers sent by previous provider still pending. Normal pulse oximetry no respiratory distress no cough (8) History of sleep apnea: Code(s): Z86.69 - Personal history of other diseases of the nervous system and sense organs Status: Acute Plan Remainder of stroke workup ordered after positive MRI. Expect patient to be able to discharge home with home health for PT/OT after evaluation completed. DS: Summary Hospital Course Hospital Course: 88-year-old male with past medical history of BPH and hypertension who presented to the ER due to feeling weakness and having diarrhea.? Patient reports that problem started 1 week ago when was outside working in the yard.? He had been raking leaves about 2 hours and was standing in the driveway.? When he went to put the [employer] waste into a bad she passed out.? He had no prodromal symptoms and landed on the concrete face 1st.? He came into the ER for evaluation and had imaging which demonstrated if nasal fracture.? He was discharged home on Keflex for preventative of infection.? He reports ever since he had the syncopal event he has been feeling weaker and fatigued.? He has also had some decreased appetite.? He suspects that he may not have been drinking enough fluid on the day that he was working in the [employer].? He did not receive any IV fluids during his 1st ER visit in did not have labs performed.? He reports that about 3 days ago he began having watery brown diarrhea.? He was having 2-3 episodes a day until today at which time he had an incontinent bowel movement and he has had 5 her more diarrheal stools.? As a result he has not had any desire to eat.? He denies any abdominal pain.?
[2023-09-25 19:17] LABS: PSA, Free 0.01 ng/mL; PSA, Total 0.2 ng/mL (<=4.0)
[2023-09-26 00:39] LABS: CA-125 5 U/mL (<35)
[2023-09-26 05:53] LABS: CA 19-9 12 U/mL (<34)
[2023-09-26 23:43] LABS: Rotavirus Stool Not Detected
--- NOTE | 2023-09-30 08:16 | PC.NURSE ---
CA 19-9 antigen is nml at 12 CA 125 Antigen is nml at 5 Free PSA- 0.01 Total PSA- 0.2
== END 2023-09-24 16:25 | disposition home or self-care (01) | DRG 66 ==
LOC: ANHED 09-22 00:20 → ANH3MED 09-22 00:39
PROVIDERS: Internal Medicine; Nurse Practitioner; Admitting Provider Internal Medicine; Emergency Provider Emergency Medicine; PCP Family Medicine; Visit Provider Nurse Practitioner Acute Care
DX: I63.9 Cerebral infarction, unspecified (principal); E86.0 Dehydration; R27.0 Ataxia, unspecified; R47.1 Dysarthria and anarthria; I10 Essential (primary) hypertension; C61 Malignant neoplasm of prostate; R19.7 Diarrhea, unspecified; R91.8 Other nonspecific abnormal finding of lung field; Z20.822 Contact with and (suspected) exposure to COVID-19; W19.XXXD Unspecified fall, subsequent encounter; S02.2XXD Fracture of nasal bones, subsequent encounter for fracture with routine healing; Z87.891 Personal history of nicotine dependence
CPT/HCPCS: 36415; 70450; 70553; 71045; 80048; 80053; 80061; 81001; 82274; 82378; 82607; 82746; 83605; 83735; 84153; 84154; 84484; 85025; 85027; 85610; 85730; 86301; 86304; 87269; 87425; 87493; 87636; 92610; 93005; 93306; 93880; 96361; 96365; 96372; 96375; 97161; 97165; 97530; 97535; 99285; A9270; A9577; G0378; J0612; J1650; J2060; J7030; J7121

== ENCOUNTER 2024-02-23 14:08 | Outpatient (CLI) | payer MEDICARE, BC, SELFPAY ==
--- NOTE | ~2024-02-23 | XR_ITS ---
XR finger 3rd LT min 2V 02/23/2024 14:21 INDICATION: Left third finger pain PROCEDURE: 2 views left third finger COMPARISON: No prior studies for comparison. FINDINGS: Fracture, dislocation or subluxation is not identified. Mild polyarticular osteoarthritis. The soft tissues appear within normal limits. No foreign bodies are identified. IMPRESSION: 1: NO ACUTE BONE OR JOINT ABNORMALITY IDENTIFIED. Reviewed, dictated and finalized at location B.
== END 2024-02-23 14:09 ==
LOC: MICIMG 14:12
PROVIDERS: PCP Family Medicine; Visit Provider Family Medicine
DX: M79.645 Pain in left finger(s) (principal)
CPT/HCPCS: 73140

== ENCOUNTER 2024-07-15 10:29 | Emergency (ER) | payer MEDICARE, BC, SELFPAY ==
[2024-07-15] VITALS (26 sets, daily range): BP systolic 113–150; BP diastolic 63–83; PULSE 59–102; RESP 13–23; TEMP 36.3; O2SAT 94–100
--- NOTE | ~2024-07-15 | XR_ITS ---
EXAMINATION: XR chest 1V DATE: 07/15/2024 11:32 INDICATION: Syncope. TECHNIQUE: A single frontal view of the chest was obtained. COMPARISON: Chest single view 09/21/2023, chest CT 06/12/2020 FINDINGS: There is no pneumonia, pleural effusion, or pneumothorax. The heart size is normal. IMPRESSION: 1. No acute cardiopulmonary disease. Reviewed, dictated and finalized at location A.
--- NOTE | ~2024-07-15 | CT_ITS ---
EXAMINATION: CT brain wo con DATE: 07/15/2024 12:37 INDICATION: Syncope TECHNIQUE: Computed tomography (CT) of the head was performed without intravenous contrast. Sagittal and coronal reconstructions were performed. The mA was adjusted according to patient size. Iterative reconstruction technique was employed. The dose-length product was 681.00 mGy-cm. COMPARISON: head CT dated and MR dated 09/23/2023 FINDINGS: No acute intracranial hemorrhage, acute infarction or abnormal extra axial fluid collection. There is moderate scattered white matter hypoattenuation consistent with chronic small vessel ischemic diseas e. Symmetric prominence of the sulci and ventricles consistent with moderate age-appropriate diffuse cerebral volume loss. No mass/mass effect. Intracranial calcified cerebral atherosclerosis is noted. The orbits, paranasal sinuses and mastoid air cells are normal. IMPRESSION: 1. Age-related changes including moderate diffuse volume loss and moderate scattered white matter hyp oattenuation consistent with chronic small vessel ischemic disease. No acute intracranial process. Reviewed, dictated and finalized at location B. IMPRESSION: 1. Age-related changes including moderate diffuse volume loss and moderate scat tered white matter hypoattenuation consistent with chronic small vessel ischemi c disease. No acute intracranial process.
--- NOTE | 2024-07-15 10:32 | ECG_ITS ---
Test Date: 2024-07-15 10:32:22 Measurements Intervals [place] Rate: 58 P: 63 MD: 228 QRS: 45 QRSD: 93 T: 65 QT: 448 QTc: 440 Interpretive Statements SINUS BRADYCARDIA WITH FIRST DEGREE AV BLOCK NONSPECIFIC T-WAVE ABNORMALITY- ANTEROLAT/HIGH LAT LEADS BASELINE WANDER- V3 BORDERLINE ECG No previous ECG available for comparison Electronically Signed On 07-15-2024 10:39:44 CDT by Omid Wick D.O.
[2024-07-15 11:17] LABS: Basophils Absolute Auto 0.1 K/mm3 (0.0-0.1); Basophils Percent Auto 0.8 % (0.2-1.2); Eosinophils Absolute Auto 0.1 K/mm3 (0-0.3); Eosinophils Percent Auto 1.2 % (0-4.4); Hematocrit 45.1 % (42.0-52.0); Hemoglobin 14.7 g/dL (14.0-18.0); Immature Granulocyte Absolute 0.05 K/mm3 (0.00-0.031); Immature Granulocyte Percent A 0.6 % (0-0.5); Lymphocytes Absolute Auto 1.06 K/mm3 (0.9-3.2); Lymphocytes Percent Auto 13.8 % (18.3-44.2); Mean Corpuscular HGB Conc 32.6 g/dl (32-36); Mean Corpuscular Hemoglobin 33.9 pg (26-34); Mean Corpuscular Volume 103.9 fl (80-100); Monocytes Absolute Auto 0.8 K/mm3 (0.1-0.6); Monocytes Percent Auto 10.4 % (2.6-8.5); Neutrophils Absolute Auto 5.6 K/mm3 (1.3-6.7); Neutrophils Percent Auto 73.2 % (45.5-73.1); Platelet Count Result 236 k/mm3 (150-375); Red Blood Count 4.34 M/mm3 (4.6-6.20); Red Cell Distribution Width 13.3 % (11.5-14.5); White Blood Count 7.7 K/mm3 (4.5-10.0)
[2024-07-15 11:30] LABS: Alanine Aminotransferase 52 U/L (6-50); Albumin Level 3.8 g/dL (3.5-5.1); Alkaline Phosphatase 73 U/L (38-126); Anion Gap 12 mmol/L (4-12); Aspartate Amino Transferase 47 U/L (17-59); Bilirubin,Total 1.3 mg/dL (0.2-1.3); Blood Urea Nitrogen 16 mg/dL (9-20); Calcium 8.8 mg/dL (8.4-10.2); Carbon Dioxide 21 mmol/L (22-30); Chloride 103 mmol/L (98-107); Estimated CRCL calculation 44 ml/min; Estimated Glomerular Filt Rate > 60; Glucose 137 mg/dL (65-110); Potassium 3.8 mmol/L (3.4-5.0); Sodium 136 mmol/L (137-145)
[2024-07-15 11:53] LABS: Influenza A QL RT-PCR Negative (Negative); Influenza B QL RT-PCR Negative (Negative); RSV RNA, RT-PCR Negative (Negative); SARS-CoV-2 RNA PCR Negative (Negative)
--- NOTE | 2024-07-15 12:18 | ED.DIZZY ---
HPI - Dizziness General Chief Complaint: Syncope Stated Complaint: syncope Time Seen by Provider: 07/15/24 11:34 History of Present Illness HPI Narrative: This is an 88-year-old male with a past medical history including hypertension, hyperlipidemia, previous stroke with some residual deficits, mild cognitive impairment. Today patient presents to the emergency department after a syncopal event that was witnessed by . 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 He states he was working in the heat and felt hot, when he went to sit down he did pass out and his found him with some evidence of emesis on him. Patient of self presently states he feels weak but he has been feeling weak for several weeks. The provides collateral formation and states that he has had similar syncopal episodes in the past that were not attribute anything aside from being in the yd and exerting himself. He was recently seen at [facility] for similar with resultant head trauma that did not have any acute findings according to the prior to discharge home. Presently is awake alert oriented answers all questions appropriately. He does not feel nauseous and denies any headache or vision changes. Denies any chest pain, shortness a breath, fever, chills, abdominal pain, back pain, neuropathy. Patient's only complaint presently he feels generally weak but is not able to localize a particular area that he feels more weak. Related Data Allergies Allergy/AdvReac Type Severity Reaction Status Date / Time No Known Allergies Allergy Verified 07/12/24 14:37 Review of Systems Review of Systems: As reviewed above in HPI [facility] Past Medical History Medical History Cerebrovascular disease History of stroke with current residual effects HLD (hyperlipidemia) HTN (hypertension), benign IFG (impaired fasting glucose) MCI (mild cognitive impairment) Multiple pulmonary nodules determined by computed tomography of lung Prostate cancer Surgical History Surgical History Status post left inguinal hernia repair Status post tonsillectomy Family History Family History Father Pancreatic cancer Social History Social History Social History: He and his have been since 1960. They live in their own home. 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 He denies any significant tobacco use or drug use. He does not have advanced directives in place. But he does not know if he would want to be resuscitated or be placed on a ventilator. He wants to talk about these options with his family before making a decision. He would want his to be his surrogate decision maker. Smoking packs per day: 1 Smoking cigarettes per day: 20.0 Years smoked: 2 Smoking pack-years: 2.00 Smoking status: Former smoker Second hand tobacco smoke exposure: No Alcohol intake: current Drinks per week: 7 Substance use: never Substance use type: does not use Do You Feel Safe in your Home?: Yes Lack of Transportation: No Lack of Food: Never True Current Housing: I Have Housing Concerned About Future Housing: No Difficulty Paying Gas/Electric Bills: No Difficulty Paying for Meds: No Currently Unemployed: No Education: Bachelor's Degree Difficulty w/ Childcare or Family Care: No Living arrangements: with family Occupation/Education: retired Gender identity (if verbalized by the patient): Male Sexual Orientation (if Verbalized by the Patient): Straight or Heterosexual Spiritual care concerns: No Exam Narrative: GENERAL: [Well-appearing, well-nourished, and in no acute distress.] HEAD: [Normocephalic, atraumatic.]
[2024-07-15] MEDS: LACTATED RINGERS 1,000 ML 999 ML IV CONT (12:21)
[2024-07-15 12:59] LABS: Troponin I < 0.012 ng/mL (0.000-0.034)
--- NOTE | 2024-07-15 13:53 | ECG_ITS ---
Test Date: 2024-07-15 14:04:34 Measurements Intervals [place] Rate: 82 P: 43 [place]: 258 QRS: 33 QRSD: 87 T: 91 QT: 348 QTc: 407 Interpretive Statements SINUS RHYTHM WITH FIRST DEGREE AV BLOCK NONSPECIFIC T-WAVE ABNORMALITY- DIFFUSE LEADS BASELINE ARTIFACT- I, II, III, AVR, AVL, AVF, V1-V3 BORDERLINE ECG Compared to ECG 07/15/2024 10:32:22 HEART RATE HAS INCREASED Electronically Signed On 07-15-2024 14:07:48 CDT by Omid Wick D.O.
[2024-07-15 14:46] LABS: Troponin I < 0.012 ng/mL (0.000-0.034)
== END 2024-07-15 16:44 | disposition home or self-care (01) ==
PROVIDERS: Emergency Provider Student in an Organized Health Care Education/Training Program; PCP Family Medicine
DX: R55 Syncope and collapse (principal); Z20.822 Contact with and (suspected) exposure to COVID-19; I10 Essential (primary) hypertension; I69.319 Unspecified symptoms and signs involving cognitive functions following cerebral infarction; E78.5 Hyperlipidemia, unspecified; R00.1 Bradycardia, unspecified; R94.31 Abnormal electrocardiogram [ECG] [EKG]; I44.0 Atrioventricular block, first degree; Z79.02 Long term (current) use of antithrombotics/antiplatelets; Z79.82 Long term (current) use of aspirin; Z79.899 Other long term (current) drug therapy
CPT/HCPCS: 36415; 70450; 71045; 80053; 84484; 85025; 87637; 93005; 96360; 96361; 99284; J7120

== ENCOUNTER 2025-03-27 10:05 | Emergency (ER) | payer MEDICARE, BC, SELFPAY ==
[2025-03-27 10:05] VITALS: BP 139/70; PULSE 52; RESP 16; TEMP 36.3; O2SAT 99
--- NOTE | 2025-03-27 10:06 | ECG_ITS ---
Test Date: 2025-03-27 10:09:43 Measurements Intervals [place] Rate: 52 P: 15 DE: 214 QRS: 28 QRSD: 105 T: 34 QT: 436 QTc: 408 Interpretive Statements SINUS BRADYCARDIA WITH FIRST DEGREE AV BLOCK BASELINE ARTIFACT- II, III, AVR, AVF BORDERLINE ECG Compared to ECG 07/15/2024 14:04:34 HEART RATE HAS DECREASED Electronically Signed On 03-27-2025 19:33:03 CDT by Omid Wick D.O.
[2025-03-27 10:56] VITALS: BP 130/70; PULSE 59
[2025-03-27 10:57] VITALS: BP 132/77; PULSE 55
[2025-03-27 11:00] VITALS: BP 133/76; PULSE 57
[2025-03-27 11:01] LABS: Basophils Absolute Auto 0.1 K/mm3 (0.0-0.1); Basophils Percent Auto 0.9 % (0.2-1.2); Eosinophils Absolute Auto 0.1 K/mm3 (0-0.3); Eosinophils Percent Auto 1.9 % (0-4.4); Hematocrit 42.9 % (42.0-52.0); Hemoglobin 13.9 g/dL (14.0-18.0); Immature Granulocyte Absolute 0.03 K/mm3 (0.00-0.031); Immature Granulocyte Percent A 0.5 % (0-0.5); Lymphocytes Absolute Auto 1.09 K/mm3 (0.9-3.2); Lymphocytes Percent Auto 18.7 % (18.3-44.2); Mean Corpuscular HGB Conc 32.4 g/dl (32-36); Mean Corpuscular Hemoglobin 33.9 pg (26-34); Mean Corpuscular Volume 104.6 fl (80-100); Mean Platelet Volume 9.1 fl (7.4-10.4); Monocytes Absolute Auto 0.8 K/mm3 (0.1-0.6); Monocytes Percent Auto 14.4 % (2.6-8.5); Neutrophils Absolute Auto 3.7 K/mm3 (1.3-6.7); Neutrophils Percent Auto 63.6 % (45.5-73.1); Platelet Count Result 173 k/mm3 (150-375); Red Cell Distribution Width 13.3 % (11.5-14.5); White Blood Count 5.8 K/mm3 (4.5-10.0)
[2025-03-27 11:10] LABS: Lactic Acid Reflex 1.8 mmol/L (0.7-2.0)
[2025-03-27 11:11] LABS: Anion Gap 7 mmol/L (4-12); Blood Urea Nitrogen 14 mg/dL (9-20); Carbon Dioxide 25 mmol/L (22-30); Chloride 108 mmol/L (98-107); Estimated CRCL calculation 53 ml/min; Estimated Glomerular Filt Rate > 60; Glucose 99 mg/dL (65-110); Potassium 3.7 mmol/L (3.4-5.0); Sodium 140 mmol/L (137-145)
[2025-03-27 11:12] LABS: Alanine Aminotransferase 26 U/L (6-50); Albumin Level 3.3 g/dL (3.5-5.1); Alkaline Phosphatase 59 U/L (38-126); Aspartate Amino Transferase 31 U/L (17-59); Calcium 8.4 mg/dL (8.4-10.2); Magnesium 1.9 mg/dL (1.6-2.3)
[2025-03-27 11:23] LABS: NT Pro B Type Natriuretic Pept 47 pg/mL (19.9-100); Troponin I < 0.012 ng/mL (0.000-0.034)
--- NOTE | 2025-03-27 11:39 | ECG_ITS ---
Test Date: 2025-03-27 11:43:27 Measurements Intervals [place] Rate: 57 P: 41 [place]: 237 QRS: 42 QRSD: 101 T: 40 QT: 316 QTc: 310 Interpretive Statements SINUS BRADYCARDIA WITH MARKED SINUS ARRHYTHMIA WITH FIRST DEGREE AV BLOCK BASELINE ARTIFACT- I, II, III, AVR, AVL, AVF, V1-V6 BORDERLINE ECG Compared to ECG 03/27/2025 10:09:43 NO SIGNIFICANT CHANGE Electronically Signed On 03-27-2025 19:32:20 CDT by Omid Wick D.O.
--- NOTE | 2025-03-27 11:44 | ED_ITS ---
HPI - Syncope General Chief Complaint: Syncope Stated Complaint: syncopal episode Time Seen by Provider: 03/27/25 10:06 Related Data Allergies Allergy/AdvReac Type Severity Reaction Status Date / Time No Known Allergies Allergy Verified 03/27/25 10:08 [facility] Past Medical History Medical History Dementia of the Alzheimer's type Cerebrovascular disease MCI (mild cognitive impairment) HLD (hyperlipidemia) History of stroke with current residual effects Multiple pulmonary nodules determined by computed tomography of lung Prostate cancer IFG (impaired fasting glucose) HTN (hypertension), benign Surgical History Surgical History Status post left inguinal hernia repair Status post tonsillectomy Family History Family History Father Pancreatic cancer Social History Social History Social History: He and his have been since 1960. They live in their own home. 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 He denies any significant tobacco use or drug use. He does not have advanced directives in place. But he does not know if he would want to be resuscitated or be placed on a ventilator. He wants to talk about these options with his family before making a decision. He would want his to be his surrogate decision maker. Smoking packs per day: 1 Smoking cigarettes per day: 20.0 Years smoked: 2 Smoking pack-years: 2.00 Smoking status: Former smoker Second hand tobacco smoke exposure: No Alcohol intake: current Drinks per week: 7 Substance use: never Substance use type: does not use Do You Feel Safe in your Home?: Yes Lack of Transportation: No Lack of Food: Never True Current Housing: I Have Housing Concerned About Future Housing: No Difficulty Paying Gas/Electric Bills: No Difficulty Paying for Meds: No Currently Unemployed: No Education: Bachelor's Degree Difficulty w/ Childcare or Family Care: No Living arrangements: with family Occupation/Education: retired Gender identity (if verbalized by the patient): Male Sexual Orientation (if Verbalized by the Patient): Straight or Heterosexual Spiritual care concerns: No Course Vital Signs Vital signs: Vital Signs Temperature 97.4 F L 03/27/25 10:05 Pulse Rate 52 L 03/27/25 10:05 Respiratory Rate 16 03/27/25 10:05 Blood Pressure 139/70 03/27/25 10:05 Pulse Oximetry 99 03/27/25 10:05 Oxygen Delivery Room Air 03/27/25 10:05 Temperature 97.4 F L 03/27/25 10:05 Pulse Rate 57 L 03/27/25 11:00 Respiratory Rate 16 03/27/25 10:05 Blood Pressure 133/76 03/27/25 11:00 Pulse Oximetry 99 03/27/25 10:05 Oxygen Delivery Room Air 03/27/25 10:05 MDM - Syncope Lab Data 03/27/25 10:56 03/27/25 10:56 Labs: Lab Results 03/27/25 Range/Units 10:56 WBC 5.8 (4.5-10.0) K/mm3 RBC 4.10 L (4.6-6.20) M/mm3 Hgb 13.9 L (14.0-18.0) g/dL Hct 42.9 (42.0-52.0) % MCV 104.6 H (80-100) fl MCH 33.9 (26-34) pg MCHC 32.4 (32-36) g/dl RDW 13.3 (11.5-14.5) % Plt Count 173 (150-375) k/mm3 MPV 9.1 (7.4-10.4) fl Immature Gran % (Auto) 0.5 (0-0.5) % Neut % (Auto) 63.6 (45.5-73.1) % Lymph % (Auto) 18.7 (18.3-44.2) % [place] % (Auto) 14.4 H (2.6-8.5) % Eos % (Auto) 1.9 (0-4.4) % Baso % (Auto) 0.9 (0.2-1.2) % Lymph # (Auto) 1.09 (0.9-3.2) K/mm3 [place] # (Auto) 0.8 H (0.1-0.6) K/mm3 Eos # (Auto) 0.1 (0-0.3) K/mm3 Baso # (Auto) 0.1 (0.0-0.1) K/mm3 Abs Immat Gran (auto) 0.03 (0.00-0.031) K/mm3 Absolute Neuts (auto) 3.7 (1.3-6.7) K/mm3 Absolute Nucleated RBC 0.000 (0.0-0.012) K/mm3 Nucleated RBC % 0.0 (0.0-0.2) % Sodium 140 (137-145) mmol/L Potassium 3.7 (3.4-5.0) mmol/L Chloride 108 H (98-107) mmol/L Carbon Dioxide 25 (22-30) mmol/L Anion Gap 7 (4-12) mmol/L BUN 14 (9-20) mg/dL Creatinine 0.85 (0.7-1.3) mg/dL Estim Creat Clear Calc 53 ml/min Estimated GFR > 60 (59 - ) Glucose 99 (65-110) mg/dL Lactic Acid 1.8 (0.7-2.0) mmol/L Calcium 8.4 (8.4-10.2) mg/dL Magnesium 1.9 (1.6-2.3) mg/dL Total Bilirubin 1.0 (0.2-1.3) mg/dL AST 31 (17-59) U/L ALT 26 (6-50) U/L Alkaline Phosphatase 59 (38-126) U/L Troponin I < 0.012 (0.000-0.034) ng/mL NT-Pro-B Natriuret Pep 47 (19.9-100) pg/mL Total Protein 6.0 L (6.3-8.2) g/dL Albumin 3.3 L (3.5-5.1) g/dL Discharge Plan Discharge Patient Language: [place] Verdean Prescriptions: No Action atorvastatin 40 mg tablet 40 mg PO HS Qty: 90 3RF donepezil [Aricept] 5 mg tablet 5 mg PO QHS Qty: 90 2RF clopidogrel 75 mg Tablet 75 mg PO QAM Qty: 30 0RF aspirin 81 mg Tablet,Delayed Release (Dr/Ec) 81 mg PO QAM Qty: 30 0RF silodosin [Rapaflo] 4 mg capsule 4 mg PO DAILY Qty: 90 2RF lisinopril 5 mg tablet 5 mg PO DAILY Qty: 90 1RF Rx Instructions: TAKE 1 TABLET BY MOUTH DAILY memantine [Namenda] 10 mg tablet 10 mg PO BID Qty: 180 3RF Rx Instructions: start after titration pack Follow-up/Referrals: Ravindra Colin MD [Primary Care Provider] -
[2025-03-27] MEDS: FAMOTIDINE 20 MG/2 ML VIAL IV PUSH (11:52)
[2025-03-27 12:02] LABS: Add Urine Microscopic? YES; Appearance Urine Clear (Clear); Bacteria Urine None Seen /hpf; Bilirubin Urine Negative (Negative); Blood Urine Negative (Negative); Color Urine Dark Yellow (Yellow); Glucose Urine UA Negative (Negative); Ketones Urine Negative (Negative); Leukocyte Esterase Ur Negative LEU/UL (Negative); Nitrate Urine Negative (Negative); Protein Urine Trace mg/dL (Negative); RBC Urine 0-2 /hpf (0-2); Specific Grav Ur 1.018 (1.001-1.035); Squamous Epithelial Cell Urine None Seen /hpf (Few); WBC Urine 0-5 /hpf (0-3)
[2025-03-27 12:49] VITALS: BP 131/79; PULSE 64; RESP 16; O2SAT 98
[2025-03-27 13:53] VITALS: BP 124/74; PULSE 88; RESP 18; O2SAT 99
== END 2025-03-27 14:02 | disposition home or self-care (01) ==
PROVIDERS: Emergency Provider Emergency Medicine; PCP Family Medicine
DX: R55 Syncope and collapse (principal)
CPT/HCPCS: 36415; 80053; 81001; 83605; 83735; 83880; 84484; 85025; 93005; 96374; 99284

== ENCOUNTER 2025-10-06 09:11 | Emergency (ER) | payer MEDICARE, BC, SELFPAY ==
[2025-10-06] VITALS (7 sets, daily range): BP systolic 134–149; BP diastolic 65–80; PULSE 55–84; RESP 14–19; TEMP 36.6; O2SAT 98–100
--- NOTE | ~2025-10-06 | CT_ITS ---
EXAMINATION: CT brain wo con DATE: 10/06/2025 10:45 INDICATION: Syncope TECHNIQUE: Computed tomography (CT) of the head was performed without intravenous contrast. The dose-length product was 605.33 mGy-cm. COMPARISON: July 15, 2024 FINDINGS: No acute hemorrhage, mass effect or large acute ischemic event seen. Moderately severe diffuse chronic microvascular ischemic appearing white matter changes similar to the previous exam. Calvarial structures appear stable. IMPRESSION: 1. No gross intracranial mass effect or hemorrhage. 2. Extensive chronic microvascular ischemic appearing white matter changes. Reviewed, dictated and finalized at location A. 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
--- NOTE | ~2025-10-06 | XR_ITS ---
EXAMINATION: XR chest 2V DATE: 10/06/2025 10:37 INDICATION: Syncope TECHNIQUE: Frontal and lateral views of the chest were obtained. COMPARISON: July 15, 2024 FINDINGS: Heart and hilar vascular shadows normal. Parahilar interstitial and bronchovascular markings mildly increased. No focal consolidation, effusion or patricia pulmonary edema. No gross lymphadenopathy. Bones and upper abdomen unremarkable. IMPRESSION: 1. Prominent interstitial markings which may represent mild vascular congestion or atypical inflammatory/infectious process. No focal pneumonia. Reviewed, dictated and finalized at location A. DINATOR OF PLACEMENT
--- NOTE | 2025-10-06 09:23 | ECG_ITS ---
Test Date: 2025-10-06 09:31:31 Measurements Intervals [place] Rate: 54 P: 29 MS: 232 QRS: 37 QRSD: 101 T: 69 QT: 392 QTc: 374 Interpretive Statements SINUS BRADYCARDIA WITH FIRST DEGREE AV BLOCK NONSPECIFIC T-WAVE ABNORMALITY- ANTERIOR LEADS BASELINE ARTIFACT- V3 BORDERLINE ECG Compared to ECG 03/27/2025 11:43:27 Sinus arrhythmia no longer present Electronically Signed On 10-06-2025 09:33:44 [employer] by Omid Wick D.O.
[2025-10-06] MEDS: SODIUM CHLORIDE 0.9% IV 1,000 ML 999 ML IV CONT (10:27)
[2025-10-06 10:32] LABS: Hematocrit 47.6 % (42.0-52.0); Hemoglobin 16.1 g/dL (14.0-18.0); Immature Granulocyte Percent A 0.4 % (0-0.5); Lymphocytes Absolute Auto 0.60 K/mm3 (0.9-3.2); Mean Corpuscular HGB Conc 33.8 g/dl (32-36); Mean Corpuscular Hemoglobin 34.8 pg (26-34); Mean Corpuscular Volume 102.8 fl (80-100); Nucleated Red Blood Cells Absolute Auto 0.000 K/mm3 (0.0-0.012); Nucleated Red Blood Cells Perc 0.0 % (0.0-0.2); Platelet Count Result 231 k/mm3 (150-375); Red Blood Count 4.63 M/mm3 (4.6-6.20); White Blood Count 6.9 K/mm3 (4.5-10.0)
[2025-10-06 10:57] LABS: Alanine Aminotransferase 37 U/L (6-50); Albumin Level 4.2 g/dL (3.5-5.1); Alkaline Phosphatase 82 U/L (38-126); Anion Gap 7 mmol/L (4-12); Aspartate Amino Transferase 38 U/L (17-59); Bilirubin,Total 1.2 mg/dL (0.2-1.3); Blood Urea Nitrogen 18 mg/dL (9-20); Calcium 9.2 mg/dL (8.4-10.2); Carbon Dioxide 23 mmol/L (22-30); Chloride 104 mmol/L (98-107); Estimated CRCL calculation 47 ml/min; Estimated Glomerular Filt Rate > 60; Glucose 110 mg/dL (65-110); Potassium 4.1 mmol/L (3.4-5.0); Sodium 134 mmol/L (137-145); Total Protein 8.0 g/dL (6.3-8.2)
[2025-10-06 11:17] LABS: Add Urine Microscopic? YES; Appearance Urine Clear (Clear); Glucose Urine UA Negative (Negative); Leukocyte Esterase Ur Negative LEU/UL (Negative); Need Manual Microscopic Reviewed; Nitrate Urine Negative (Negative); Specific Grav Ur 1.019 (1.001-1.035)
--- NOTE | 2025-10-06 12:09 | PC.NURSE ---
Pt. reports feeling a little weak but no other complaints. Denies CP, dizziness or SOB.
--- NOTE | 2025-10-06 12:20 | ED.SYNCOPE ---
HPI - Syncope General Chief Complaint: Syncope Stated Complaint: syncope Time Seen by Provider: 10/06/25 09:46 History of Present Illness HPI narrative: Patient is an 89-year-old male who presents ER after having an episode of syncope. Patient was having upset stomach and had some diarrhea passed down. He has had multiple episodes of syncope over last 2 years. He has declined Holter monitor and declined implanted environmental monitoring technician. Patient has mild dementia. History obtained from . He has no complaints. Normotensive here. Stool did not consist of blood. Related Data Allergies Allergy/AdvReac Type Severity Reaction Status Date / Time No Known Allergies Allergy Verified 10/06/25 09:23 Review of Systems Review of Systems: All systems reviewed & are unremarkable except as noted in HPI and below Constitutional: Constitutional: Reports no additional constitutional complaints ENT: Reports system reviewed and no additional complaints, except as documented Cardiovascular: Cardiovascular: Reports no additional cardiovascular complaints Respiratory: Respiratory: Reports no additional respiratory complaints Gastrointestinal: Gastrointestinal: Reports no additional gastrointestinal complaints PMFSH Past Medical History Medical History Dementia of the Alzheimer's type Cerebrovascular disease MCI (mild cognitive impairment) HLD (hyperlipidemia) History of stroke with current residual effects Multiple pulmonary nodules determined by computed tomography of lung Prostate cancer IFG (impaired fasting glucose) HTN (hypertension), benign Surgical History Surgical History Status post left inguinal hernia repair Status post tonsillectomy Family History Family History Father Pancreatic cancer Social History Social History Social History: He and his have been since 1960. They live in their own home. 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 He denies any significant tobacco use or drug use. He does not have advanced directives in place. But he does not know if he would want to be resuscitated or be placed on a ventilator. He wants to talk about these options with his family before making a decision. He would want his to be his surrogate decision maker. Smoking packs per day: 1 Smoking cigarettes per day: 20.0 Years smoked: 2 Smoking pack-years: 2.00 Smoking status: Former smoker Second hand tobacco smoke exposure: No Alcohol intake: current Drinks per week: 7 Substance use: never Substance use type: does not use Lack of Transportation: No Lack of Food: Never True Current Housing: I Have Housing Concerned About Future Housing: No Difficulty Paying Gas/Electric Bills: No Difficulty Paying for Meds: No Currently Unemployed: No Education: Bachelor's Degree Difficulty w/ Childcare or Family Care: No Living arrangements: with family Occupation/Education: retired Gender identity (if verbalized by the patient): Male Sexual Orientation (if Verbalized by the Patient): Straight or Heterosexual Spiritual care concerns: No Exam Narrative: GENERAL: Well-appearing, well-nourished, and in no acute distress. HEAD: Normocephalic, atraumatic. EYES: PERRL and EOMI. ENT: Mucous membranes moist. CHEST: Clear to auscultation. No respiratory distress. HEART: Regular rate and rhythm. Normal peripheral pulses. ABDOMEN: Soft, nontender, nondistended. EXTREMITIES: Normal range of motion. No edema. SKIN: Warm, dry, no rash. NEURO: Alert and oriented x3. PSYCH: Normal mood and affect. Course Course Emergency Course: Patient resting comfortably. Up and ambulatory without issue. Hydrated with IV fluid. Labs unremarkable. Patient felt to have vasovagal syncope from rapid transit diarrhea. Vital Signs Vital signs: Vital Signs Temperature 97.8 F 10/06/25 09:11 Pulse Rate 59 L 10/06/25 09:11 Respiratory Rate 19 10/06/25 09:11 Blood Pressure 149/80 H 10/06/25 09:11 Pulse Oximetry 98 10/06/25 09:11 Oxygen Delivery Room Air 10/06/25 09:11 Temperature 97.8 F 10/06/25 09:11 Pulse Rate 84 10/06/25 12:54 Respiratory Rate 14 10/06/25 12:54 Blood Pressure 138/78 10/06/25 12:54 Pulse Oximetry 98 10/06/25 12:54 Oxygen Delivery Room Air 10/06/25 09:11 Discharge Plan Discharge Clinical Impression: Syncope, vasovagal, Acute diarrhea Patient Disposition: Home Condition: Stable Instructions: Syncope (ED) Additional Instructions: Please return to the emergency department if you develop severe and persistent chest pain, difficulty breathing, dizziness, leg swelling or if you are coughing up blood as these can be signs of a medical emergency. Please call your doctor for a follow up appointment to determine the need for further testing. Patient Language: Liberian Prescriptions: No Action donepezil [Aricept] 10 mg tablet 10 mg PO QHS Qty: 90 2RF aspirin 81 mg Tablet,Delayed Release (Dr/Ec) 81 mg PO QAM Qty: 30 0RF silodosin [Rapaflo] 4 mg capsule 4 mg PO DAILY Qty: 90 2RF atorvastatin 40 mg tablet See Rx Instructions .ROUTE .COMPLEX Qty: 90 3RF Dose Instruction: TAKE 1 TABLET BY MOUTH AT BEDTIME Rx Instructions: TAKE 1 TABLET BY MOUTH AT BEDTIME escitalopram oxalate [Lexapro] 5 mg tablet 5 mg PO DAILY Qty: 90 2RF Rx Instructions: may increase to 2 tablets after 1 month Follow-up/Referrals: Ravindra Colin MD [Primary Care Provider, [facility]] - 1 Week MDM Differential Diagnosis Differential Diagnosis: Gastroenteritis, syncope, seizure, intracranial hemorrhage, arrhythmia, dehydration, acute kidney injury, vasovagal Lab Data 10/06/25 10:21 10/06/25 10:21 Labs: Lab Results 10/06/25 10/06/25 Range/Units 10:21 11:01 WBC 6.9 (4.5-10.0) K/mm3 RBC 4.63 (4.6-6.20) M/mm3 Hgb 16.1 (14.0-18.0) g/dL Hct 47.6 (42.0-52.0) % MCV 102.8 H (80-100) fl MCH 34.8 H (26-34) pg MCHC 33.8 (32-36) g/dl RDW 13.3 (11.5-14.5) % Plt Count 231 (150-375) k/mm3 MPV 8.7 (7.4-10.4) fl Immature Gran % (Auto) 0.4 (0-0.5) % Neut % (Auto) 81.3 H (45.5-73.1) % Lymph % (Auto) 8.8 L (18.3-44.2) % [place] % (Auto) 8.3 (2.6-8.5) % Eos % (Auto) 0.6 (0-4.4) % Baso % (Auto) 0.6 (0.2-1.2) % Lymph # (Auto) 0.60 L (0.9-3.2) K/mm3 [place] # (Auto) 0.6 (0.1-0.6) K/mm3 Eos # (Auto) 0.0 (0-0.3) K/mm3 Baso # (Auto) 0.0 (0.0-0.1) K/mm3 Abs Immat Gran (auto) 0.03 (0.00-0.031) K/mm3 Absolute Neuts (auto) 5.6 (1.3-6.7) K/mm3 Absolute Nucleated RBC 0.000 (0.0-0.012) K/mm3 Nucleated RBC % 0.0 (0.0-0.2) % Sodium 134 L (137-145) mmol/L Potassium 4.1 (3.4-5.0) mmol/L Chloride 104 (98-107) mmol/L Carbon Dioxide 23 (22-30) mmol/L Anion Gap 7 (4-12) mmol/L BUN 18 (9-20) mg/dL Creatinine 0.93 (0.7-1.3) mg/dL Estim Creat Clear Calc 47 ml/min Estimated GFR > 60 (59 - ) Glucose 110 (65-110) mg/dL Calcium 9.2 (8.4-10.2) mg/dL Total Bilirubin 1.2 (0.2-1.3) mg/dL AST 38 (17-59) U/L ALT 37 (6-50) U/L Alkaline Phosphatase 82 (38-126) U/L Total Protein 8.0 (6.3-8.2) g/dL Albumin 4.2 (3.5-5.1) g/dL Urine Color Yellow (Yellow) Urine Appearance Clear (Clear) Urine pH 6.5 (5.0-9.0) Ur Specific [place] 1.019 (1.001-1.035) Urine Protein Trace (Negative) mg/dL Urine Glucose (UA) Negative (Negative) mg/dL Urine Ketones Negative (Negative) mg/dL Ur Blood (Man) Negative (Negative) Urine Nitrate Negative (Negative) Urine Bilirubin Negative (Negative) Urine Urobilinogen 1.0 (<2.0) mg/dL Add Ur Microanalysis Reviewed Leukocyte Esterase Rfl Negative (Negative) ANGELINA/UL Urine RBC 0-2 (0-2) /hpf Urine WBC 0-5 (0-3) /hpf Ur Squamous Epith Cells None seen (Few) /hpf Urine Bacteria None seen /hpf Urine Casts 6-10 Imaging Data Radiologist's impression: ITS Impressions Chest X-Ray 10/06/25 10:37 IMPRESSION: 1. Prominent interstitial markings which may represent mild vascular congestion or atypical inflammatory/infectious process. No focal pneumonia. Head CT 10/06/25 10:48 IMPRESSION: 1. No gross intracranial mass effect or hemorrhage. 2. Extensive chronic microvascular ischemic appearing white matter changes. ECG Data EKG #1: ECG completion date: 10/06/25 ECG completion time: 09:31 bradycardia (54), sinus rhythm, no ST changes, normal QT and NL axis
--- NOTE | 2025-10-06 13:18 | PC.NURSE ---
Pt. able to ambulate without dizziness and independently. Pt. takes small steps, which at bedside states is baseline for pt. Pt. has bilateral intermittent hand tremors, which is new for pt. Pt. states he hasn't eaten today. Pt. returned to bed and given juice and a sandwich.
--- NOTE | 2025-10-06 13:50 | PC.NURSE ---
Dr. Reyes at bedside updating pt. and pt. .
== END 2025-10-06 14:24 | disposition home or self-care (01) ==
PROVIDERS: Emergency Provider Emergency Medicine; PCP Family Medicine
DX: R55 Syncope and collapse (principal); R19.7 Diarrhea, unspecified; G30.9 Alzheimer's disease, unspecified; F02.80 Dementia in other diseases classified elsewhere, unspecified severity, without behavioral disturbance, psychotic disturbance, mood disturbance, and anxiety; I10 Essential (primary) hypertension; E78.5 Hyperlipidemia, unspecified; Z86.73 Personal history of transient ischemic attack (TIA), and cerebral infarction without residual deficits; Z85.46 Personal history of malignant neoplasm of prostate; Z87.891 Personal history of nicotine dependence; Z79.82 Long term (current) use of aspirin; Z79.899 Other long term (current) drug therapy; I44.0 Atrioventricular block, first degree; R00.1 Bradycardia, unspecified
CPT/HCPCS: 36415; 70450; 71046; 80053; 81001; 85025; 93005; 96360; 99284; J7030

== ENCOUNTER 2025-10-14 11:04 | Emergency (ER) | payer MEDICARE, BC, SELFPAY ==
[2025-10-14] VITALS (8 sets, daily range): BP systolic 124–155; BP diastolic 67–93; PULSE 53–86; RESP 14–18; TEMP 36.7; O2SAT 95–99
--- NOTE | ~2025-10-14 | XR_ITS ---
EXAMINATION: XR chest 2V DATE: 10/14/2025 13:00 INDICATION: Syncope TECHNIQUE: Frontal and lateral views of the chest were obtained. COMPARISON: October 06, 2025 FINDINGS: Similar changes in the infrahilar interstitial and bronchovascular markings. The lungs otherwise are clear. No pneumothorax or subphrenic free air seen. Heart size normal. Diffuse degenerative changes in the bones. IMPRESSION: 1. Findings may represent mild interstitial lung process or early infiltrative changes such as with aspiration. 2. Remaining lung davila are clear. Reviewed, dictated and finalized at location A. ORATE ASSOCIATE
--- NOTE | 2025-10-14 11:07 | ECG_ITS ---
Test Date: 2025-10-14 11:12:49 Measurements Intervals [place] Rate: 53 P: 37 [place]: 204 QRS: 36 QRSD: 118 T: 73 QT: 370 QTc: 349 Interpretive Statements SINUS BRADYCARDIA BORDERLINE AV CONDUCTION DELAY BORDERLINE T WAVE ABNORMALITY- DIFFUSE LEADS BASELINE WANDER- II, III, AVR, AVL, AVF, V1-V3 BORDERLINE ECG Compared to ECG 10/06/2025 09:31:31 NO SIGNIFICANT CHANGE Electronically Signed On 10-14-2025 11:21:48 [employer] by Omid Wick D.O.
[2025-10-14 11:32] LABS: Hematocrit 47.4 % (42.0-52.0); Hemoglobin 16.0 g/dL (14.0-18.0); Immature Granulocyte Percent A 0.6 % (0-0.5); Lymphocytes Absolute Auto 1.25 K/mm3 (0.9-3.2); Mean Corpuscular HGB Conc 33.8 g/dl (32-36); Mean Corpuscular Hemoglobin 34.8 pg (26-34); Mean Corpuscular Volume 103.0 fl (80-100); Nucleated Red Blood Cells Absolute Auto 0.000 K/mm3 (0.0-0.012); Nucleated Red Blood Cells Perc 0.0 % (0.0-0.2); Platelet Count Result 223 k/mm3 (150-375); Red Blood Count 4.60 M/mm3 (4.6-6.20); White Blood Count 6.7 K/mm3 (4.5-10.0)
--- NOTE | 2025-10-14 12:15 | ED_ITS ---
HPI - Syncope General Chief Complaint: Syncope Stated Complaint: syncope Time Seen by Provider: 10/14/25 12:09 Source: patient Mode of arrival: ambulatory Limitations: no limitations History of Present Illness HPI narrative: 89 years old white male referred to the emergency room from his family physician's office because of syncope twice during office visit today. patient was discharged from the hospital October 06 because of syncope of unknown etiology, went to see her family physician today for follow-up, patient was asymptomatic at that time. Patient was seen a spragger, patient declined loop recorder placement. In the ED patient is asymptomatic, extremity med about coming to the emergency room because this been going often on for a while and nobody knows what is going on. Patient denies any fever, chills, nausea, vomiting , headache, focal neuro deficit, chest pain, shortness of breath or back pain Related Data Allergies Allergy/AdvReac Type Severity Reaction Status Date / Time No Known Allergies Allergy Verified 10/14/25 11:12 Review of Systems 2 Review of Systems: All systems reviewed & are unremarkable except as noted in HPI and below PMFSH Past Medical History Medical History Dementia of the Alzheimer's type Cerebrovascular disease MCI (mild cognitive impairment) HLD (hyperlipidemia) History of stroke with current residual effects Multiple pulmonary nodules determined by computed tomography of lung Prostate cancer IFG (impaired fasting glucose) HTN (hypertension), benign Surgical History Surgical History Status post left inguinal hernia repair Status post tonsillectomy Family History Family History Father Pancreatic cancer Social History Social History Social History: He and his have been since 1960. They live in their own home. 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 He denies any significant tobacco use or drug use. He does not have advanced directives in place. But he does not know if he would want to be resuscitated or be placed on a ventilator. He wants to talk about these options with his family before making a decision. He would want his to be his surrogate decision maker. Smoking packs per day: 1 Smoking cigarettes per day: 20.0 Years smoked: 2 Smoking pack-years: 2.00 Smoking status: Former smoker Second hand tobacco smoke exposure: No Alcohol intake: current Substance use: never Substance use type: does not use Lack of Transportation: No Lack of Food: Never True Current Housing: I Have Housing Concerned About Future Housing: No Difficulty Paying Gas/Electric Bills: No Difficulty Paying for Meds: No Currently Unemployed: No Education: Bachelor's Degree Difficulty w/ Childcare or Family Care: No Living arrangements: with family Occupation/Education: retired Gender identity (if verbalized by the patient): Male Sexual Orientation (if Verbalized by the Patient): Straight or Heterosexual Spiritual care concerns: No Exam 2 Narrative: General appearance: Well-developed, well-nourished Skin: Normal color Head: Normocephalic, nontraumatic Eyes: Clear conjunctiva ENT: Oropharynx normal, ears normal, nose normal Neck: Supple, nontender Chest and respiratory: Airway patent, no respiratory distress, no accessory muscle use Heart: Regular rate/rhythm Abdomen: Soft, nontender, no organomegaly, quiet bowel sounds Vascular: Normal peripheral pulses, normal capillary refill. 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 is normal as tested, no gross motor deficit Course Vital Signs Vital signs: Vital Signs Temperature 36.7 C 10/14/25 11:05 Pulse Rate 53 L 10/14/25 11:05 Respiratory Rate 16 10/14/25 11:05 Blood Pressure 142/74 H 10/14/25 11:05 Pulse Oximetry 96 10/14/25 11:05 Oxygen Delivery Room Air 10/14/25 11:05 Temperature 36.7 C 10/14/25 11:05 Pulse Rate 86 10/14/25 14:07 Respiratory Rate 18 10/14/25 14:00 Blood Pressure 124/82 10/14/25 14:07 Pulse Oximetry 99 10/14/25 14:00 Oxygen Delivery Room Air 10/14/25 11:05 Critical Care Time Critical Care Time Critical Care Time: No Discharge Plan Discharge Clinical Impression: Syncope Patient Disposition: Left Against Medical Advice Condition: Guarded Prognosis Patient Language: Syriac Prescriptions: No Action donepezil [Aricept] 10 mg tablet 10 mg PO QHS Qty: 90 2RF aspirin 81 mg Tablet,Delayed Release (Dr/Ec) 81 mg PO QAM Qty: 30 0RF silodosin [Rapaflo] 4 mg capsule 4 mg PO DAILY Qty: 90 2RF atorvastatin 40 mg tablet See Rx Instructions .ROUTE .COMPLEX Qty: 90 3RF Dose Instruction: TAKE 1 TABLET BY MOUTH AT BEDTIME Rx Instructions: TAKE 1 TABLET BY MOUTH AT BEDTIME escitalopram oxalate [Lexapro] 5 mg tablet 5 mg PO DAILY Qty: 90 2RF Rx Instructions: may increase to 2 tablets after 1 month Follow-up/Referrals: Ravindra Colin MD [Primary Care Provider, Family Practice] [facility] Narrative Medical decision making narrative: Patient came to the ED with syncope x2 in his family physician office prior to arrival. Vital signs showing heart rate of 53 otherwise within normal limit Physical examination is unremarkable Differential diagnosis include cardiac arrhythmia, orthostatic hypotension, electrolyte imbalance, dehydration Blood workup today includes CBC, CMP, troponin showed no significant abnormality Chest x-ray showed questionable mild early infiltration process. Patient denies any shortness of breath or coughing or fever or chills, normal white count. EKG showed Sinus bradycardia Diagnosis syncope, Patient left AGAINST MEDICAL ADVICE. I declare that I have personally explained to the patient the risks and consequences involved in leaving this facility at this time. the benefits of continued treatment and/or hospitalization. And the alternatives. If any. to continued treatment and/or hospitalization. if applicable.I have not identified any psychosis, drugs, mental illness, or medical illness that alters decision-making capacity (reasoning abilities ). Differential Diagnosis Differential Diagnosis: As above Medical Records I have reviewed the following patient records and this information was taken into consideration when formulating the assessment and plan.: previous labs, previous ER visits, previous hospitalizations and previous clinic visits Lab Data [facility] Lab Attestation statement: I personally reviewed the patient's lab results. 10/14/25 11:27 10/14/25 11:55 Labs: Lab Results 10/14/25 10/14/25 Range/Units 11:27 11:55 WBC 6.7 (4.5-10.0) K/mm3 RBC 4.60 (4.6-6.20) M/mm3 Hgb 16.0 (14.0-18.0) g/dL Hct 47.4 (42.0-52.0) % MCV 103.0 H (80-100) fl MCH 34.8 H (26-34) pg MCHC 33.8 (32-36) g/dl RDW 13.4 (11.5-14.5) % Plt Count 223 (150-375) k/mm3 MPV 8.9 (7.4-10.4) fl Immature Gran % (Auto) 0.6 H (0-0.5) % Neut % (Auto) 69.6 (45.5-73.1) % Lymph % (Auto) 18.7 (18.3-44.2) % Cross % (Auto) 10.0 H (2.6-8.5) % Eos % (Auto) 0.4 (0-4.4) % Baso % (Auto) 0.7 (0.2-1.2) % Lymph # (Auto) 1.25 (0.9-3.2) K/mm3 Cross # (Auto) 0.7 H (0.1-0.6) K/mm3 Eos # (Auto) 0.0 (0-0.3) K/mm3 Baso # (Auto) 0.1 (0.0-0.1) K/mm3 Abs Immat Gran (auto) 0.04 H (0.00-0.031) K/mm3 Absolute Neuts (auto) 4.7 (1.3-6.7) K/mm3 Absolute Nucleated RBC 0.000 (0.0-0.012) K/mm3 Nucleated RBC % 0.0 (0.0-0.2) % Sodium 136 L (137-145) mmol/L Potassium 3.9 (3.4-5.0) mmol/L Chloride 107 (98-107) mmol/L Carbon Dioxide 22 (22-30) mmol/L Anion Gap 7 (4-12) mmol/L BUN 14 (9-20) mg/dL Creatinine 0.91 (0.7-1.3) mg/dL Estim Creat Clear Calc 48 ml/min Estimated GFR > 60 (59 - ) Glucose 119 H (65-110) mg/dL Calcium 9.0 (8.4-10.2) mg/dL Total Bilirubin 1.2 (0.2-1.3) mg/dL AST 28 (17-59) U/L ALT 29 (6-50) U/L Alkaline Phosphatase 80 (38-126) U/L Troponin I < 0.012 (0.000-0.034) ng/mL Total Protein 7.4 (6.3-8.2) g/dL Albumin 3.9 (3.5-5.1) g/dL Imaging Data Radiologist's impression: ITS Impressions Chest X-Ray 10/14/25 13:18 IMPRESSION: 1. Findings may represent mild interstitial lung process or early infiltrative changes such as with aspiration. 2. Remaining lung davila are clear. ECG Data EKG #1: Attestation: I personally reviewed and interpreted this ECG as follows: ECG completion date: 10/14/25 Interpretation: sinus bradycardia at 53 beats per minute, borderline AV conduction delay, borderline T-wave abnormality-diffuse leads, baseline wander Borderline EKG, compared to EKG on October 06, 2025 no significant change.
[2025-10-14 12:19] LABS: Alanine Aminotransferase 29 U/L (6-50); Albumin Level 3.9 g/dL (3.5-5.1); Alkaline Phosphatase 80 U/L (38-126); Anion Gap 7 mmol/L (4-12); Aspartate Amino Transferase 28 U/L (17-59); Bilirubin,Total 1.2 mg/dL (0.2-1.3); Blood Urea Nitrogen 14 mg/dL (9-20); Calcium 9.0 mg/dL (8.4-10.2); Carbon Dioxide 22 mmol/L (22-30); Chloride 107 mmol/L (98-107); Estimated CRCL calculation 48 ml/min; Estimated Glomerular Filt Rate > 60; Glucose 119 mg/dL (65-110); Potassium 3.9 mmol/L (3.4-5.0); Sodium 136 mmol/L (137-145); Total Protein 7.4 g/dL (6.3-8.2)
--- OUTSIDE RECORDS SUMMARY | 2025-10-14 12:41 | XMS_ITS | Encounter Summary ---
Author Organization [facility] Address [address] [place] [address] Care Team Providers Care Harbor Tug Captain Name Role Phone Ravindra Colin MD Primary Care Provider [phone] Ravindra Colin MD Primary Care Provider [phone] Ravindra Colin MD Unavailable [phone] Encounter Details Date Type Department Care Team (Late st Contact Info) Description 10/07/2019 Lab Requisition [facility] [address] [place] [address] Anthony Ozuna MD [address] [place] [address] Social History Tobacco Use Types Packs/Day Years Used Date Smoking Tobacco: Never Alcohol Use Standard Drinks/Week Comments Yes 0 (1 standard drink = 0.6 oz pur e alcohol) Sex and Gender Information Value Date Recorded Sex Assigned at Not on file Legal Sex Male 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 Gender Identity Not on file Sexual Orientation Not on file documented as of this encounter Plan of Treatment Not on file documented as of this encounter Procedures Procedure Name Priority Date/Time Associated Diagnosis Comments DERMATOPATHOLOGY Routine 10/06/2019 12:0 0 AM GENERAL TELLER documented in this encounter Results * DERMATOPATHOLOGY (10/06/2019 12:00 AM GENERAL TELLER) Case Report Dermatopathology Report Case: [id number] Authorizing Provider: Anthony Ozuna MD Collected: 10/06/2019 12:00 AM Ordering Location: [facility] Received: 10/07/2019 12:07 PM Pathologist: Ho Gonzalez MD Specimens: A) - Skin, dorsal hand B) - Skin, dorsal right forearm 9 5:17 PM [facility] Amended Report Changed site A from dorsal hand to dorsal left hand. 9 5:17 PM [facility] Final Diagnosis Specimen A. SKIN, dorsal left hand: HYPERPLASTIC (HYPERTROPHIC) ACTINIC KERATOSIS (L57.0) SOLAR LENTIGO (L81.4) Specimen B. SKIN, dorsal right forearm: BENIGN VERRUCOUS KERATOSIS, INFLAMED (L82.1) 9 5:17 PM [facility] Amendment electronically signed by Ho Gonzalez MD on 10/12/2019 at 1717 GENERAL TELLER at 1458 GENERAL TELLER Clinical History A-B: R/O SCC. 9 5:17 PM [facility] Gross Description Specimen A: Received is one formalin filled container labeled with the patient's name and designated dorsal left hand. The specimen consists of a curettage and desiccation biopsy measuring [id number]. Jar 0+. Specimen B: Received is one formalin filled container labeled with the patient's name and designated dorsal right forearm. The specimen consists of a shave biopsy measuring [id number]. Jar 0. 9 5:17 PM [facility] Microscopic Description Specimen A. SKIN, dorsal left hand: There is hyperkeratosis alternating with parakeratosis. There is epidermal hyperplasia with disorderly maturation of keratinocytes with nuclear pleomorphism confined to the lower half of the epidermis. In addition, there is orthokeratosis. There is a slight increase in epidermal thickness with lentiginous buds of hyperpigmented keratinocytes. The number of melanocytes is only mildly increased. In the dermis, there is basophilic degeneration of elastic fibers. Specimen B. SKIN, dorsal right forearm: Sections show hyperkeratosis, papillomatosis, hypergranulosis, and acanthosis. Inflammatory cells are present within the dermis. These histological findings can be seen in a verruca vulgaris or a seborrheic keratosis. 9 5:17 PM [facility] Disclaimer An external and internal positive and negative controls are appropriate for the histochemical, immunohistochemical and immunofluorescence stain(s) in this case (if any), except where stated explicitly. The performance characteristics of the stain(s) cited in this report were developed and its performance characteristic determined by the Dermatopathology Laboratory at [facility], directed by Dr. Niko Gonzalez. These tests need not be, and therefore are not, approved by the [place] Food and Drug Administration. The tests are used for clinical purposes. Billing Codes Specimen Charges Stain Charges 10376 97116 1 1 9 5:17 PM [facility] Embedded Images 9 5:17 PM [facility] Pathology/Cytology TISSUE SPECIMEN FROM SKIN / Unknown 10/06/2019 10/07/2019 12:07 PM GENERAL TELLER Miscellaneous samples (specimen) TISSUE SPECIMEN FROM SKIN / Unknown 10/06/2019 10/07/2019 12:07 PM GENERAL TELLER Anthony Ozuna MD LAB - PATHOLOGY/CYTOLOGY ORD ERABLES Edited Result - Final DERMATOPATHOLOGY LABORATORY [facility] - Department of Dermatology [address]th [address] Lab [address] [phone] documented in this encounter Visit Diagnoses Not on filedocumented in this encounter Care Teams Harbor Tug Captain Relationship Specialty Start Date End Date Ravindra Colin MD [address] [place] [address] PCP - General 07/07/15 05/28/24 Ravindra Colin MD [address] [place] [address] PCP - General Family Medicine 05/29/24 Ravindra Colin MD [address] [place] [id number] 05/29/24 documented as of this encounter
--- OUTSIDE RECORDS SUMMARY | 2025-10-14 12:41 | XMS_ITS | Clinical Summary ---
Author Organization [facility] Address [address] [place] [address] Care Team Providers Care Customer Account Administrator Name Role Phone Ravindra Colin MD Primary Care Provider [phone] Ravindra Colin MD Unavailable Source Comments [facility],non-owned Affiliates and Associated Physician Practices is amultiple site organization consisting of ambulatory clinics and hospital sitesin [place], [place], [place] and [place]. This disclosure is being madepursuant to the Care Everywhere program and may not contain all information available regarding this patient. Last updated 18.[facility] Allergies No known active allergies Medications * Be aware that medications may not be up to date on this document. Alwaysverify current medications with the patient. silodosin (Rapaflo) 4 MG capsule Take 1 (one) capsule by mouth daily with breakfast Active aspirin (Aspirin) 81 MG chew tablet Take 1 (one) tablet by mouth once daily Active atorvastatin (Lipitor) 40 MG tablet Take 1 (one) tablet by mouth at bedtime Active donepezil (Aricept) 5 MG tablet Take 1 (one) tablet by mouth at bedtime Active Active Problems Problem Noted Date Diagnosed Date Fall 05/29/2024 Laceration of head 05/29/2024 Syncope 05/29/2024 Fall, initial encounter 05/29/2024 Eyebrow laceration, left, initial encounter 12/2023 Hypotension, unspecified hypotension type 2023 Scar conditions and fibrosis of skin 07/31/2015 Actinic keratosis 07/31/2015 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 4 or more times a week 05/29/2024 Q2: How many drinks containi ng alcohol do you have on a typical day when you are drinking? 1 or 2 Q3: How often do you have si x or more drinks on one occasion? 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 Gender Identity Not on file Sexual Orientation Not on file Last Filed Vital Signs Vital Sign Reading Time Taken Comments Blood Pressure 146/66 05/31/2024 12:33 PM CDT Pulse 73 05/31/2024 12:33 PM CDT Temperature 36.8 C (98.2 F) 05/31/2024 12:33 PM CDT Respiratory Rate 16 05/31/2024 12:3 3 PM CDT Oxygen Saturation 100% 05/31/2024 12: 33 PM CDT Inhaled Oxygen Concentration - - Weight 77.1 kg (169 lb 14.4 oz) 05/29/2024 4:45 PM CDT Height 172.7 cm (5' 8) 05/29/2024 4:45 PM CDT Body Mass Index 25.83 05/29/2024 4:45 PM CDT Plan of Treatment Health Maintenance Due Date Last Done Comments MEDICARE AWV 12 MONTHS 1936 PNEUMOCOCCAL VACCINE 50+ (1 of 1 - PCV) 1986 ZOSTER VACCINE (1 of 2) 1986 Respiratory Syncytial Virus (RSV) Vaccine Pt: or over 60 yrs (1 - 1-dose 75+ series) 2011 DEPRESSION SCREENING 10/27/2024 COVID-19 VACCINE (1 - 2024-2 6 season) 2025 INFLUENZA VACCINE (#1) 2025 DTAP/TDAP/TD VACCINES (2 - T d or Tdap) 05/29/2034 05/29/2024 HEPATITIS B VACCINE Aged Out No longe r eligible based on patient's age to complete this topic HIB VACCINE Aged Out No longer eligi ble based on patient's age to complete this topic HPV VACCINE Aged Out No longer eligi ble based on patient's age to complete this topic MENINGOCOCCAL (Group B) VACC INE SHARED DECISION-MAKING Aged Out No longer eligibl e based on patient's age to complete this topic MENINGOCOCCAL GROUPS A/C/Y/W VACCINE Aged Out No longer eligible b ased on patient's age to complete this topic Insurance MEDICARE [facility] MEDICARE Care Teams Customer Account Administrator Relationship Specialty Start Date End Date Ravindra Colin MD [address] [place] [address] PCP - General Family Medicine 05/29/24 Ravindra Colin MD [address] [place] [address] 05/29/24
--- OUTSIDE RECORDS SUMMARY | 2025-10-14 12:41 | XMS_ITS | Clinical Summary ---
Author Organization [facility] [address] Address [address] [place] [address] Care Team Providers Care Ditching Machine Engineer Name Role Phone Ravindra Colin MD Primary Care Provider Allergies No known active allergies Medications No known medications Active Problems Problem Noted Date Diagnosed Date Stroke (cerebrum) 06/13/2025 HLD (hyperlipidemia) 06/13/2025 HTN (hypertension) 06/13/2025 MCI (mild cognitive impairment) 06/13/2025 Eyebrow laceration, left, initial encounter 12/2023 Fall 05/29/2024 Hypotension 05/29/2024 Laceration of head 05/29/2024 Syncope 05/29/2024 Actinic keratosis 07/31/2015 Basal cell carcinoma of skin of nose 07/31/2015 Scar conditions and fibrosis of skin 07/31/2015 Surgical History Surgery Date Site/Laterality Comments INGUINAL HERNIA REPAIR Left TONSILLECTOMY Medical History Medical History Date Comments Prostate cancer (HCC) Hyperlipidemia Hypertension Family History Medical History Relation Name Comments Pancreatic cancer Father Dementia Mother Relation Name Status Comments Father Mother Social History Tobacco Use Types Packs/Day Years Used Date Smoking Tobacco: Never Tobacco Cessation:Counseling Given: Not Answered Sex and Gender Information Value Date Recorded Sex Assigned at Not on file Legal Sex Male 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 Gender Identity Not on file Sexual Orientation Not on file Last Filed Vital Signs Vital Sign Reading Time Taken Comments Blood Pressure 112/70 06/13/2025 1:03 PM CDT Pulse 72 06/13/2025 1:03 PM CDT Temperature - - Respiratory Rate - - Oxygen Saturation 96% 06/13/2025 1:03 PM CDT Inhaled Oxygen Concentration - - Weight 82.8 kg (182 lb 8 oz) 06/13/2025 1:03 PM CDT Height 172.7 cm (5' 8) 06/13/2025 1:03 PM CDT Body Mass Index 27.75 06/13/2025 1:03 PM CDT Plan of Treatment Health Maintenance Due Date Last Done Comments Depression Screening 1936 Fall Risk Assessment 1936 Hepatitis B Screening 1954 Pneumococcal vaccine 65+ (1 of 1 - PCV) 1986 Well Visit 65+ 2001 Covid-19 Vaccine (4 - 2024-2 6 season) 2025 09/06/2022, 04/19/2022, 08/23/2021 Influenza Vaccine (#1) 2025 , 08/10/2021, 07/25/2020, Additional history exists DTaP/Tdap/Td Vaccine (2 - Td or Tdap) 05/29/2034 05/29/2024 Zoster Vaccine Completed 07/02/2022, 04/24/2022 Insurance MEDICARE MEDICARE [facility] Member Subscriber Plan / Payer (Ef fective 2015-Present) Name:Vini Aguirre Relation to Subscriber:Self Name:Vini Aguirre Payer ID:[id number] (NAIC) Group ID:[id number] Type:[facility] Address: [address] [place] [id number] Care Teams Ditching Machine Engineer Relationship Specialty Start Date End Date Ravindra Colin MD [address] [place] [address] PCP - General Family Medicine 03/03/23
--- OUTSIDE RECORDS SUMMARY | 2025-10-14 12:41 | XMS_ITS | Clinical Summary ---
Author Organization [facility] Address [address] [address] Phone Care Team Providers Care Hse Manager Name Role Phone Ravindra Colin MD Primary Care Provider Devin Navarro DO Unavailable [phone] Allergies No known active allergies Medications polyethylene glycol (MIRALAX) Powder Mix the entire bottle with 64 oz of a clear liquid. Use as directed by the office for colonoscopy prep. 255 g 0 6 Active lisinopril (PRINIVIL, ZESTRIL) 5 MG Tablet Take 1 Tab by mouth daily. 2 6 Active RAPAFLO 4 MG Capsule Take 1 Tab by mouth daily. 11 6 Active SAW PALMETTO, SERENOA REPENS, PO Take 2 Tabs by mouth Every other day. Active Family History Medical History Relation Name Comments Cancer Father Pancreatic Colon Cancer Other Uncle Relation Name Status Comments Father Other Social History Tobacco Use Types Packs/Day Years Used Date Smoking Tobacco: Never Smokeless Tobacco: Never Alcohol Use Standard Drinks/Week Comments Yes 1 (1 standard drink = 0.6 oz pur e alcohol) Sex and Gender Information Value Date Recorded Sex Assigned at Not on file Legal Sex Male 7:34 PM CDT Gender Identity Not on file Sexual Orientation Not on file Plan of Treatment Health Maintenance Due Date Last Done Comments Hepatitis C Virus (HCV) Screening 1936 TdaP Immunization 1936 Pneumococcal Immunization (50+ years) (1 of 1 - PCV) 1986 Zoster Immunization (1 of 2) 1986 Medicare Initial AWV [id number] 07/27/2002 Respiratory Syncytial Virus (RSV) Immunization (Adult) (1 - 1-dose 75+ series) 2011 Influenza Immunization (#1) 06/27/202506/28, 07/19/2019, 07/31/2018, Additional history exists SARS-COV-2 Immunization ( season) 2025 08/23/2021 Hepatitis B Immunization Aged Out No longer eligible based on patient's age to complete this topic Human Papillomavirus (HPV) Immunization Aged Out No longer eligible based on patient's age to complete this topic Meningococcal Immunization (ACWY) Aged Out No longer eligible based on patient's age to complete this topic Rotavirus Immunization Aged Out No lo nger eligible based on patient's age to complete this topic Insurance MEDICARE [facility] Care Teams Hse Manager Relationship Specialty Start Date End Date Ravindra Colin MD [address] [place] [address] PCP - General Family Medicine 08/21/16 Devin Navarro DO [address] [place] [address] Gastroenterology 08/21/16
[2025-10-14 12:44] LABS: Troponin I < 0.012 ng/mL (0.000-0.034)
== END 2025-10-14 14:30 | disposition left against medical advice (07) ==
PROVIDERS: Emergency Medicine; Emergency Provider Emergency Medicine; PCP Family Medicine
DX: R55 Syncope and collapse (principal); E78.5 Hyperlipidemia, unspecified; I10 Essential (primary) hypertension; Z85.46 Personal history of malignant neoplasm of prostate; G30.9 Alzheimer's disease, unspecified; F02.80 Dementia in other diseases classified elsewhere, unspecified severity, without behavioral disturbance, psychotic disturbance, mood disturbance, and anxiety; I69.319 Unspecified symptoms and signs involving cognitive functions following cerebral infarction; Z87.891 Personal history of nicotine dependence
CPT/HCPCS: 36415; 71046; 80053; 84484; 85025; 93005; 99284